=== PATIENT | male | born 1950 | race Caucasian/White ===

== ENCOUNTER → 2017-03-17 | Outpatient (CLI) | payer OTHER | LOC: BHFA 08:30 | PROVIDERS: ATTEND Internal Medicine Cardiovascular Disease | DX: I25.2 Old myocardial infarction (principal); I25.10 Atherosclerotic heart disease of native coronary artery without angina pectoris | CPT/HCPCS: 78452; 93017; A9500; J2785 ==

== ENCOUNTER → 2017-03-30 | Outpatient (CLI) | payer OTHER | LOC: BHFA 08:30 | PROVIDERS: ATTEND Internal Medicine Interventional Cardiology | DX: I25.10 Atherosclerotic heart disease of native coronary artery without angina pectoris (principal) ==

== ENCOUNTER 2017-05-04 07:03 | Day surgery (SDC) | payer OTHER ==
[2017-05-04] MEDS ORDERED: DIAZEPAM 5 MG TAB PO ONE (07:08)
[2017-05-04] MEDS ORDERED: NS 1,000 ML IV ONE (07:08)
[2017-05-04] MEDS ORDERED: diphenhydrAMINE 25 MG CAP PO ONE ×2 (07:08→07:22)
[2017-05-04] MEDS ORDERED: ASPIRIN EC 325 MG TAB PO ONE ×2 (07:08→07:22)
[2017-05-04] MEDS ORDERED: FAMOTIDINE 20 MG TAB PO ONE (07:08)
[2017-05-04] MEDS ORDERED: FAMOTIDINE 20 MG TAB ONE (07:22)
[2017-05-04] MEDS ORDERED: DIAZEPAM 5 MG TAB ONE (07:23)
--- NOTE | 2017-05-04 07:30 | CPEKG ---
Heart Rate: 80 RR Interval: 750 P-R Interval: 156 QRSD Interval: 94 QT Interval: 396 QTC Interval: 457 P [place]: 54 QRS [place]: -23 T Wave [place]: 82 EKG Severity - ABNORMAL ECG - EKG Impression: SINUS RHYTHM EKG Impression: BORDERLINE LEFT AXIS DEVIATION EKG Impression: ANTERIOR INFARCT, POSSIBLY ACUTE Electronically Signed By: Benjamin Mckenzie 04-May-2017 09:10:16
[2017-05-04 07:50] LABS: PLATELET COUNT 223 10^3/uL (150-400)
[2017-05-04 07:59] LABS: INR 0.91 (0.83-1.16); PROTIME(PATIENT) 12.2 SEC (12.0-15.0)
[2017-05-04] MEDS ORDERED: MIDAZOLAM 2 MG/2 ML VIAL ONE (09:00)
[2017-05-04] MEDS ORDERED: fentaNYL 100 MCG/2 ML INJ ONE (09:00)
[2017-05-04] MEDS ORDERED: LIDOCAINE 1% 300 MG/30 ML SDV ONE (09:00)
[2017-05-04] MEDS ORDERED: IOPAMIDOL (ISOVUE-370) 150 ML BTL IV ONE (09:01)
--- NOTE | 2017-05-04 09:08 | PDHPUP ---
History & Physical Update H&P update statement: This history and physical update is based on an assessment of the patient which was completed after admission or registration (within 24 hours), but prior to the surgery/procedure. H&P update: H&P reviewed & patient examined, no change in patient's condition since H&P completed
--- NOTE | 2017-05-04 09:09 | PDPROPOC ---
Sedation Plan of Care Sedation Plan of Care: vital signs stable, mental status noted, patient educated of risks, benefits, alternatives, patient can tolerate sedation ASA Classification: ASA 2 Planned drugs: fentanyl, midazolam Mallampati Score: Class 2 Mallampati Reference Image: Patient passed 3-3-2 rule?: Yes
[2017-05-04] MEDS ORDERED: NITROGLYCERIN 0.4 MG BTL SL PRN (10:11)
[2017-05-04] MEDS ORDERED: ATROPINE SULFATE 1 MG/10 ML SYR IVP PRN (10:11)
[2017-05-04] MEDS ORDERED: HYDROCODONE/APAP 5/325 TAB PO PRN (10:11)
[2017-05-04] MEDS ORDERED: ONDANSETRON 4 MG/2 ML VIAL IVP PRN (10:11)
[2017-05-04] MEDS ORDERED: OXYCODONE/APAP 5/325 TAB PO PRN (10:11)
--- NOTE | 2017-05-04 10:34 | CPIP ---
[f rep st] INVASIVE CARDIAC PROCEDURE DATE OF PROCEDURE: 05/04/2017 PROCEDURES: 1. Coronary angiography. 2. Left ventriculography. INDICATION: 1. Probable anteroseptal [place] in 2015 based on history. 2. Abnormal EKG with anteroseptal [place], old. 3. Abnormal nuclear stress test with anteroseptal [place] and EF of 28%. ACCESS: The patient was prepped and draped in sterile fashion. 1% lidocaine was used to anesthetize the right inguinal region. A 6-[place]izen [place] introducer sheath was placed selectively into the right commo n femoral artery via modified Seldinger technique. CORONARY ANGIOGRAPHY: A 6-[place]izen [place] JL4 was advanced to the left main coronary artery and images obtain ed. The left main coronary artery trifurcated into left anterior descending coronary artery, ramus c oronary artery and circumflex coronary artery. The left main coronary artery appeared normal. The l eft anterior descending coronary artery was 100% occluded after the takeoff of the 1st septal perfora tor. The distal vessel is being filled by [id number] collaterals. The ramus coronary artery is a moderate-sized vessel. The ramus coronary artery appeared normal. The circumflex coronary artery is a large vessel, but was nondominant. Circumflex coronary artery had a proximal 30% stenosis present . The circumflex coronary artery gave rise to 3 OM branches. The 1st OM branch had a proximal 30% s tenosis present. A 6-[place]izen [place] JR4 was advanced to the right coronary artery and images obtained. The right coronary artery is dominant. The right coronary artery had a mid 30% stenosis present. LEFT VENTRICULOGRAPHY: A 6-[place]izen [place] pigtail catheter was advanced in the left ventricle and images obt ained. Left ventricle was normal in size with reduced systolic function. Estimated ejection fractio n was 30% to 35%. The anteroapical segments were akinetic. The left ventricular end-diastolic press ure was 15 mmHg. COMPLICATIONS: None. CONCLUSIONS: 1. Single-vessel coronary artery disease involving the left anterior descending coronary artery. 2. Reduced left ventricular systolic function with an estimated ejection fraction of 30% to 35%. /[id number]/MODL
--- NOTE | 2017-05-04 10:34 | CPIP ---
[f rep st] INVASIVE CARDIAC PROCEDURE DATE OF PROCEDURE: 05/04/2017 PROCEDURES: 1. Coronary angiography. 2. Left ventriculography. INDICATION: 1. Probable anteroseptal [place] in 2015 based on history. 2. Abnormal EKG with anteroseptal [place], old. 3. Abnormal nuclear stress test with anteroseptal [place] and EF of 28%. ACCESS: The patient was prepped and draped in sterile fashion. 1% lidocaine was used to anesthetize the right inguinal region. A 6-[place] introducer sheath was placed selectively into the right commo n femoral artery via modified Seldinger technique. CORONARY ANGIOGRAPHY: A 6-[place] JL4 was advanced to the left main coronary artery and images obtain ed. The left main coronary artery trifurcated into left anterior descending coronary artery, ramus c oronary artery and circumflex coronary artery. The left main coronary artery appeared normal. The l eft anterior descending coronary artery was 100% occluded after the takeoff of the 1st septal perfora tor. The distal vessel is being filled by [id number] collaterals. The ramus coronary artery is a moderate-sized vessel. The ramus coronary artery appeared normal. The circumflex coronary artery is a large vessel, but was nondominant. Circumflex coronary artery had a proximal 30% stenosis present . The circumflex coronary artery gave rise to 3 OM branches. The 1st OM branch had a proximal 30% s tenosis present. A 6-[place] JR4 was advanced to the right coronary artery and images obtained. The right coronary artery is dominant. The right coronary artery had a mid 30% stenosis present. LEFT VENTRICULOGRAPHY: A 6-[place] pigtail catheter was advanced in the left ventricle and images obt ained. Left ventricle was normal in size with reduced systolic function. Estimated ejection fractio n was 30% to 35%. The anteroapical segments were akinetic. The left ventricular end-diastolic press ure was 15 mmHg. COMPLICATIONS: None. CONCLUSIONS: 1. Single-vessel coronary artery disease involving the left anterior descending coronary artery. 2. Reduced left ventricular systolic function with an estimated ejection fraction of 30% to 35%. /[id number]/MODL
--- NOTE | 2017-05-04 10:34 | CPIP ---
[f rep st] INVASIVE CARDIAC PROCEDURE DATE OF PROCEDURE: 05/04/2017 PROCEDURES: 1. Coronary angiography. 2. Left ventriculography. INDICATION: 1. Probable anteroseptal [place] in 2015 based on history. 2. Abnormal EKG with anteroseptal [place], old. 3. Abnormal nuclear stress test with anteroseptal [place] and EF of 28%. ACCESS: The patient was prepped and draped in sterile fashion. 1% lidocaine was used to anesthetize the right inguinal region. A 6-[place] introducer sheath was placed selectively into the right commo n femoral artery via modified Seldinger technique. CORONARY ANGIOGRAPHY: A 6-[place] JL4 was advanced to the left main coronary artery and images obtain ed. The left main coronary artery trifurcated into left anterior descending coronary artery, ramus c oronary artery and circumflex coronary artery. The left main coronary artery appeared normal. The l eft anterior descending coronary artery was 100% occluded after the takeoff of the 1st septal perfora tor. The distal vessel is being filled by [id number] collaterals. The ramus coronary artery is a moderate-sized vessel. The ramus coronary artery appeared normal. The circumflex coronary artery is a large vessel, but was nondominant. Circumflex coronary artery had a proximal 30% stenosis present . The circumflex coronary artery gave rise to 3 OM branches. The 1st OM branch had a proximal 30% s tenosis present. A 6-[place] JR4 was advanced to the right coronary artery and images obtained. The right coronary artery is dominant. The right coronary artery had a mid 30% stenosis present. LEFT VENTRICULOGRAPHY: A 6-[place] pigtail catheter was advanced in the left ventricle and images obt ained. Left ventricle was normal in size with reduced systolic function. Estimated ejection fractio n was 30% to 35%. The anteroapical segments were akinetic. The left ventricular end-diastolic press ure was 15 mmHg. COMPLICATIONS: None. CONCLUSIONS: 1. Single-vessel coronary artery disease involving the left anterior descending coronary artery. 2. Reduced left ventricular systolic function with an estimated ejection fraction of 30% to 35%. /[id number]/MODL
[2017-05-04] MEDS ORDERED: BUDESONIDE/FORMOTEROL 160/4.5 60 PUFFS/MDI IH SCH (21:00)
[2017-05-04] MEDS ORDERED: VENTOLIN 90 MCG IH SCH (21:00)
[2017-05-04] MEDS ORDERED: LOSARTAN POTASSIUM 50 MG TAB PO SCH (21:00)
[2017-05-04] MEDS ORDERED: ROSUVASTATIN CALCIUM 10 MG TAB PO SCH (21:00)
[2017-05-04] MEDS ORDERED: ASPIRIN 81 MG CHEWABLE TAB PO SCH (21:00)
[2017-05-05] MEDS ORDERED: NON-FORMULARY NEW DRUG (Calcium Carbonate/Vitamin D3 [Calcium 600 + Vit D Tablet] 1 EACH) PO SCH (09:00)
== END 2017-05-04 12:20 | disposition home or self-care (01) ==
LOC: FCATH 07:03
PROVIDERS: ATTEND Internal Medicine Cardiovascular Disease
PROC: 4A023N7 Measurement of Cardiac Sampling and Pressure, Left Heart, Percutaneous Approach (ICD-10-PCS; principal; 2017-05-04)
PROC: B2151ZZ Fluoroscopy of Left Heart using Low Osmolar Contrast (ICD-10-PCS; principal; 2017-05-04)
PROC: B2111ZZ Fluoroscopy of Multiple Coronary Arteries using Low Osmolar Contrast (ICD-10-PCS; principal; 2017-05-04)
DX: I25.10 Atherosclerotic heart disease of native coronary artery without angina pectoris (principal); I10 Essential (primary) hypertension; E78.5 Hyperlipidemia, unspecified; I71.4 Abdominal aortic aneurysm, without rupture; R94.39 Abnormal result of other cardiovascular function study
CPT/HCPCS: C1760; J1644; J2250; J3010; Q9967

== ENCOUNTER 2017-05-05 08:54 | Inpatient (IN) | payer OTHER ==
--- NOTE | 2017-05-05 08:58 | EDPHY ---
H & P Time Seen by Provider: 05/05/17 08:57 HPI/ROS: CHIEF COMPLAINT: Slurred speech and facial droop HISTORY OF PRESENT ILLNESS: Patient had cardiac catheterization yesterday. He has it prothrombin clotting disorder and hypertension. He was normal last night at 8:00 p.m. when he went to bed and was seen by his to have normal face and normal speech then. He got up a couple of times in the night to urinate but did not talk and did not look in the mirror. He got up at 5:30 a.m. and felt unsteady on his feet. At 7:50 a.m. his noticed right facial droop and slurred speech and presents to the ED. Patient denies any trouble with thought or trouble swallowing or trouble breathing. He denies headache or weakness or numbness in extremities. REVIEW OF SYSTEMS: Eye: no change in vision ENT: no sore throat Cardiac: no chest pain or syncope Pulmonary: no cough or SOB Abdomen: no vomiting, diarrhea, abdominal pain Musculoskeletal: no back pain Skin: no rash Neuro: HPI Constitutional: no fever : no urinary symptoms A comprehensive 10 point review of systems is otherwise negative aside from elements mentioned in the history of present illness. PAST MEDICAL HISTORY: Hypertension, myocardial infarction, prothrombin clotting disorder. Social history: Here with daughter and General Appearance: Alert and conversant, cooperative. Eyes: No scleral icterus. ENT, Mouth: Normal mucous membranes. Respiratory: Normal respiratory effort, breath sounds equal, lungs are clear to auscultation. Cardiovascular: Regular rate and rhythm. Gastrointestinal: Abdomen is soft and non tender. Neurological: Alert and oriented x3. Patient has slurred speech and right facial droop. Extraocular motion is intact. Patient has good ophthalmic technician apprentice strength in hands, can lift each leg off the bed, and preserved to light touch sensory in all 4 extremities. No pronator drift. Skin: Warm and dry, no rashes. Musculoskeletal: No peripheral edema and no joint swelling. Psychiatric: Not agitated. Emergency Department course/MDM: Patient is not made a stroke alert since he is 13 hours since last definite known normal at 8:00 p.m. last night. 918: discussed with Apolinar, agrees with no stroke alert, not Activase candidate, will consult if admitted to [facility]. CT reported to me by Dr. Moreno as carotid stenosis up to 80% but no interventional intercerebral stenosis or acute occlusion. No indication for interventional radiology. Results and plan discussed with the family and patient, admit to hospital for further stroke evaluation. Smoking Status: Former smoker Constitutional: Initial Vital Signs Temperature (C) 36.5 C 05/05/17 08:56 Heart Rate 93 05/05/17 08:56 Respiratory Rate 16 05/05/17 08:56 Blood Pressure 176/95 H 05/05/17 08:56 O2 Sat (%) 91 L 05/05/17 08:56 O2 Delivery Mode Room Air Allergies/Adverse Reactions: No Allergies [NKDA] Allergy (Verified 04/23/17 17:23) Home Medications: Medication Instructions Recorded Aspirin [Aspirin 81mg (*)] 81 mg PO HS 04/27/17 Budesonide/Formoterol 160/4.5 2 puffs IH BID 04/27/17 [Symbicort 160-4.5 Mcg Inh (*)] Calcium Carbonate/Vitamin D3 1 each PO DAILY 04/27/17 [CALCIUM 600 + VIT D TABLET] Losartan Potassium [Cozaar 50 mg 100 mg PO HS 04/27/17 (*)] Rosuvastatin Calcium [Crestor 10mg 10 mg PO HS 04/27/17 (RX)] Albuterol [Proventil Inhaler HFA 1 - 2 puffs IH DAILY PRN 05/04/17 (*)] Medical Decision Making - Diagnostics EKG Interpretation: 12-lead EKG interpreted by me; official reading is in trace master. My interpretation is sinus rhythm rate 94 with old anterior myocardial infarction. Imaging Results: Imaging Impressions Head CT 05/05/17 09:03 Impression: Nothing acute intracranially. Findings and recommendations discussed with JAZLYN ARZATE at 1010 hour, 2016. Final report concurs with initial preliminary interpretation. Chest X-Ray 05/05/17 09:08 Impression: Mild peribronchial thickening suggesting airways disease/bronchitis. Differential Diagnosis: The differential considered including but not limited to ischemic stroke, hemorrhagic stroke, seizure, intracranial mass or bleed. Consult/Admit Bed Type: [facility] - Data Points Laboratory Results: Laboratory Results 05/05/17 09:00 05/05/17 09:00 05/05/17 05/05/17 05/05/17 09:00 09:00 09:00 WBC 5.85 10^3/uL 10^3/uL (3.80-9.50) RBC 4.69 10^6/uL 10^6/uL (4.40-6.38) Hgb 14.8 g/dL g/dL (13.7-17.5) POC Hgb Hct 44.9 % % (40.0-51.0) POC Hct MCV 95.7 fL fL (81.5-99.8) MCH 31.6 pg pg (27.9-34.1) MCHC 33.0 g/dL g/dL (32.4-36.7) RDW 12.5 % % (11.5-15.2) Plt Count 240 10^3/uL 10^3/uL (150-400) MPV 9.9 fL fL (8.7-11.7) Neut % (Auto) 69.6 % % (39.3-74.2) Lymph % (Auto) 12.8 % L % (15.0-45.0) [place] % (Auto) 15.2 % H % (4.5-13.0) Eos % (Auto) 1.2 % % (0.6-7.6) Baso % (Auto) 0.9 % % (0.3-1.7) Nucleat RBC Rel Count 0.0 % % (0.0-0.2) Absolute Neuts (auto) 4.07 10^3/uL 10^3/uL (1.70-6.50) Absolute Lymphs (auto) 0.75 10^3/uL L 10^3/uL (1.00-3.00) Absolute Monos (auto) 0.89 10^3/uL H 10^3/uL (0.30-0.80) Absolute Eos (auto) 0.07 10^3/uL 10^3/uL (0.03-0.40) Absolute Basos (auto) 0.05 10^3/uL 10^3/uL (0.02-0.10) Absolute Nucleated RBC 0.00 10^3/uL 10^3/uL (0-0.01) Immature Gran % 0.3 % % (0.0-1.1) Immature Gran # 0.02 10^3/uL 10^3/uL (0.00-0.10) PT 13.0 SEC SEC (12.0-15.0) INR 0.99 (0.83-1.16) POC Sodium Sodium 141 mEq/L mEq/L (134-144) POC Potassium Potassium 4.1 mEq/L mEq/L (3.5-5.2) POC Chloride Chloride 102 mEq/L mEq/L (97-110) Carbon Dioxide 25 mEq/l mEq/l (22-31) Anion Gap 14 mEq/L mEq/L (8-16) POC BUN BUN 11 mg/dL mg/dL (7-23) Creatinine 1.1 mg/dL mg/dL (0.7-1.3) POC Creatinine Estimated GFR > 60 Glucose 75 mg/dL mg/dL (70-100) POC Glucose Calcium 9.4 mg/dL mg/dL (8.5-10.4) Troponin I 0.017 ng/mL ng/mL (0.000-0.034) 05/05/17 08:59 WBC RBC Hgb POC Hgb 16.0 gm/dL gm/dL (13.7-17.5) Hct POC Hct 47 % % (40-51) MCV MCH MCHC RDW Plt Count MPV Neut % (Auto) Lymph % (Auto) [place] % (Auto) Eos % (Auto) Baso % (Auto) Nucleat RBC Rel Count Absolute Neuts (auto) Absolute Lymphs (auto) Absolute Monos (auto) Absolute Eos (auto) Absolute Basos (auto) Absolute Nucleated RBC Immature Gran % Immature Gran # PT INR POC Sodium 140 mEq/L mEq/L (134-144) Sodium POC Potassium 4.0 mEq/L mEq/L (3.3-5.0) Potassium POC Chloride 103 mEq/L mEq/L (97-110) Chloride Carbon Dioxide Anion Gap POC BUN 11 mg/dL mg/dL (7-23) BUN Creatinine POC Creatinine 1.1 mg/dL mg/dL (0.7-1.3) Estimated GFR Glucose POC Glucose 76 mg/dL mg/dL (70-100) Calcium Troponin I Medications Given: Atorvastatin Calcium (Lipitor) 80 mg PO DAILY [facility] Stop: 11/01/17 10:59 Last Admin: 05/05/17 11:17 Dose: Not Given Discontinued Medications Aspirin (Aspirin) 325 mg PO ONCE ONE Stop: 05/05/17 10:54 Last Admin: 05/05/17 11:17 Dose: Not Given Point of Care Test Results: 05/05/17 08:59 POC Sodium 140 POC Potassium 4.0 POC Chloride 103 POC BUN 11 POC Creatinine 1.1 POC Glucose 76 Departure - Departure Disposition: Home, Routine, Self-Care Clinical Impression: Acute ischemic stroke Condition: Good
[2017-05-05] MEDS ORDERED: IOPAMIDOL (ISOVUE 370) 100 ML BTL IV ONE (09:12)
--- NOTE | 2017-05-05 09:19 | CPEKG ---
Heart Rate: 94 RR Interval: 638 P-R Interval: 172 QRSD Interval: 86 QT Interval: 356 QTC Interval: 446 P [place]: 66 QRS [place]: -12 T Wave [place]: 87 EKG Severity - ABNORMAL ECG - EKG Impression: SINUS RHYTHM EKG Impression: PROBABLE LEFT ATRIAL ABNORMALITY EKG Impression: ANTERIOR INFARCT, AGE INDETERMINATE Electronically Signed By: Jeff Nazario 05-May-2017 09:22:53
--- NOTE | 2017-05-05 09:19 | CPEKG ---
Heart Rate: 94 RR Interval: 638 P-R Interval: 172 QRSD Interval: 86 QT Interval: 356 QTC Interval: 446 P [place]: 66 QRS [place]: -12 T Wave [place]: 87 EKG Severity - ABNORMAL ECG - EKG Impression: SINUS RHYTHM EKG Impression: PROBABLE LEFT ATRIAL ABNORMALITY EKG Impression: ANTERIOR INFARCT, AGE INDETERMINATE Electronically Signed By: Jeff Nazario 05-May-2017 09:22:53
[2017-05-05 09:21] LABS: PLATELET COUNT 240 10^3/uL (150-400)
[2017-05-05 09:29] LABS: INR 0.99 (0.83-1.16)
[2017-05-05] MEDS ORDERED: ONDANSETRON DISINTEGRATING 4 MG TAB PO PRN (10:49)
[2017-05-05] MEDS ORDERED: ACETAMINOPHEN 325 MG TAB PO PRN (10:49)
[2017-05-05] MEDS ORDERED: LABETALOL HCL 5 MG/ML 20 ML MDV IVP PRN (10:49)
[2017-05-05] MEDS ORDERED: ONDANSETRON 4 MG/2 ML VIAL IVP PRN (10:49)
[2017-05-05] MEDS ORDERED: ASPIRIN 325 MG TAB PO ONE (10:53)
--- NOTE | 2017-05-05 11:01 | PDGENHP ---
History and Physical - Chief Complaint dysarthria - History of Present Illness 66 yo male with h/o hypertension, COPD, CAD with prior [place] and prothrombin clotting disorder presented to ED with am with facial droop and slurred speech. He was last seen normal at 8:30 PM last night by his . When she interacted with him this morning just before 8 am, she noticed facial droop and slurred speech and brought him to the ED right away. He denies CP, SOB or palpitations. He noted feeling dysequilibrium when he got around 5 am to use the bathroom. When he tried to speak to his this am, he speech was markedly slurred. He feels a little weakness on the right side, but more dysequilibrium. He underwent angiogram yesterday after a nuclear medicine stress test showed evidence of an old anteroseptal infarct. This revealed single vessel coronary disease in the LAD and no intervention was performed and medical management was recommended. He has been taking daily ASA since 01/2017 and also takes low dose statin. He is not on a beta fausto due to concern for his COPD. In the ED, CT head was negative and there was no eividence of large vessel occlusion on CTA. He had persistent stroke symptoms though was not a candidate for TpA given last seen normal >12 hrs prior to arrival. He is admitted to the hospital for further management. History Information - Allergies/Home Medication List Allergies/Adverse Reactions: No Allergies [NKDA] Allergy (Verified 04/23/17 17:23) Home Medications: Aspirin [Aspirin 81mg (*)] 81 mg PO HS 04/27/17 [Last Taken 05/04/17] Budesonide/Formoterol 160/4.5 [Symbicort 160-4.5 Mcg Inh (*)] 2 puffs IH BID [Last Taken 05/05/17] Calcium Carbonate/Vitamin D3 [CALCIUM 600 + VIT D TABLET] 1 each PO DAILY [Last Taken 05/05/17] Losartan Potassium [Cozaar 50 mg (*)] 100 mg PO HS 04/27/17 [Last Taken 05/04/17 ] Rosuvastatin Calcium [Crestor 10mg (RX)] 10 mg PO HS 04/27/17 [Last Taken ] Albuterol [Proventil Inhaler HFA (*)] 1 - 2 puffs IH DAILY PRN 05/04/17 [Last Taken Unknown] I have personally reviewed and updated: family history, medical history, social history, surgical history - Past Medical History coronary artery disease, COPD, hypertension Additional medical history: Prothrombin clotting disorder. H/O [place] 11/2015. Angiogram 05/04/2017 - single vessel CAD 100% occlusion of LAD. COPD. 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 Alcohol use disorder - h/o 16 beers / day, now drinking 2 beers a day - Surgical History Reports: hernia repair Additional surgical history: angiogram - Family History Additional family history: father and sister with prothrombin clotting disorder. sister had PE. dad suddenly, believed to be due to CVA - Social History Smoking Status: Former smoker Alcohol Use: Other (daily, 2 beers/day) Drug Use: None Review of Systems Review of Systems: ROS: 10pt was reviewed & negative except for what was stated in HPI & below Physical Exam Physical Exam: Temp Pulse Resp BP Pulse Ox 36.5 C 81 18 158/82 H 94 05/05/17 08:56 05/05/17 09:53 05/05/17 09:53 05/05/17 09:53 05/05/17 09:53 Constitutional: no apparent distress Eyes: PERRL Ears, Nose, Mouth, Throat: moist mucous membranes Cardiovascular: regular rate and rhythym, no murmur, rub, or gallop Respiratory: no respiratory distress, clear to auscultation Gastrointestinal: normoactive bowel sounds, soft, non-tender abdomen Skin: warm Musculoskeletal: other (4/5 muscle strength RUE and RLE, 5/5 muscle strength LUE and LLE) Neurologic: AAOx3, other (+dysarthria, +right facial droop, mild pronator drift on right) Lab Data & Imaging Review 05/05/17 09:00 05/05/17 09:00 WBC 5.85 10^3/uL (3.80-9.50) 05/05/17 09:00 RBC 4.69 10^6/uL (4.40-6.38) 05/05/17 09:00 Hgb 14.8 g/dL (13.7-17.5) 05/05/17 09:00 POC Hgb 16.0 gm/dL (13.7-17.5) 05/05/17 08:59 Hct 44.9 % (40.0-51.0) 05/05/17 09:00 POC Hct 47 % (40-51) 05/05/17 08:59 MCV 95.7 fL (81.5-99.8) 05/05/17 09:00 MCH 31.6 pg (27.9-34.1) 05/05/17 09:00 MCHC 33.0 g/dL (32.4-36.7) 05/05/17 09:00 RDW 12.5 % (11.5-15.2) 05/05/17 09:00 Plt Count 240 10^3/uL (150-400) 05/05/17 09:00 MPV 9.9 fL (8.7-11.7) 05/05/17 09:00 Neut % (Auto) 69.6 % (39.3-74.2) 05/05/17 09:00 Lymph % (Auto) 12.8 % (15.0-45.0) L 05/05/17 09:00 [place] % (Auto) 15.2 % (4.5-13.0) H 05/05/17 09:00 Eos % (Auto) 1.2 % (0.6-7.6) 05/05/17 09:00 Baso % (Auto) 0.9 % (0.3-1.7) 05/05/17 09:00 Nucleat RBC Rel Count 0.0 % (0.0-0.2) 05/05/17 09:00 Absolute Neuts (auto) 4.07 10^3/uL (1.70-6.50) 05/05/17 09:00 Absolute Lymphs (auto) 0.75 10^3/uL (1.00-3.00) L 05/05/17 09:00 Absolute Monos (auto) 0.89 10^3/uL (0.30-0.80) H 05/05/17 09:00 Absolute Eos (auto) 0.07 10^3/uL (0.03-0.40) 05/05/17 09:00 Absolute Basos (auto) 0.05 10^3/uL (0.02-0.10) 05/05/17 09:00 Absolute Nucleated RBC 0.00 10^3/uL (0-0.01) 05/05/17 09:00 Immature Gran % 0.3 % (0.0-1.1) 05/05/17 09:00 Immature Gran # 0.02 10^3/uL (0.00-0.10) 05/05/17 09:00 PT 13.0 SEC (12.0-15.0) 05/05/17 09:00 INR 0.99 (0.83-1.16) 05/05/17 09:00 POC Sodium 140 mEq/L (134-144) 05/05/17 08:59 Sodium 141 mEq/L (134-144) 05/05/17 09:00 POC Potassium 4.0 mEq/L (3.3-5.0) 05/05/17 08:59 Potassium 4.1 mEq/L (3.5-5.2) 05/05/17 09:00 POC Chloride 103 mEq/L (97-110) 05/05/17 08:59 Chloride 102 mEq/L (97-110) 05/05/17 09:00 Carbon Dioxide 25 mEq/l (22-31) 05/05/17 09:00 Anion Gap 14 mEq/L (8-16) 05/05/17 09:00 POC BUN 11 mg/dL (7-23) 05/05/17 08:59 BUN 11 mg/dL (7-23) 05/05/17 09:00 Creatinine 1.1 mg/dL (0.7-1.3) 05/05/17 09:00 POC Creatinine 1.1 mg/dL (0.7-1.3) 05/05/17 08:59 Estimated GFR > 60 05/05/17 09:00 Glucose 75 mg/dL (70-100) 05/05/17 09:00 POC Glucose 76 mg/dL (70-100) 05/05/17 08:59 Calcium 9.4 mg/dL (8.5-10.4) 05/05/17 09:00 Troponin I 0.017 ng/mL (0.000-0.034) 05/05/17 09:00 Assessment & Plan Assessment: Ischemic CVA - Last seen normal >12 hrs prior to presentation, not a candidate for TpA. Pt with persistent symptoms including dysarthria, left facial droop and mild left sided weakness. CT head neg. CTA head and neck neg for lg vessel occlusion, but preliminary report suggestive of left carotid narrowing. Brain MRI shows acute lacunar infarct left caudate body. Potential etiologies of CVA: carotid stenosis, LV thrombus (note reduced EF on angiogram), clotting disorder, (father of CVA and sister had PE from same clotting disorder), A fib -admit for stroke w/u, neurochecks -permissive hypertension for now, treat for SBP >220 or DBP >120 -monitor on telemetry, consider prolonged outpt cardiac event monitor if no other source found as 20% of CVA pts turn up with A fib -echo now to r/o LV thrombus in setting of reduced EF -full dose ASA now after swallow screen, change to plavix starting tomorrow given CVA while on baby ASA -discussed with hematology, his clotting disorder is unlikely to cause arterial strokes and is not an indication for AC, heme will consult tomorrow -may need vascular surgery consult if carotid narrowing >70%, report pending -high dose statin, check lipid status -neurology to consult Ischemic cardiomyopathy - Nuclear stress test showed e/o prior anteroseptal DE and EF 28%. Angiogram yesterday showed single vessel disease in LAD with EF 30- 35%. -echo as above -ASA, statin, consider addition of BB at some point, defer now as allowing permissive htn during acute CVA phase -cardiology consulted, ?indication for AICD Hypertension - as above, permissive hypertension -resume home meds in 24 hrs Prothrombin clotting disorder - Heme to consult tomorrow, not an indication for AC at this time. COPD - stable, cont outpt meds DVT PPLX - Lovenox Full code Dispo - admit to inpt, anticipate >48 hrs hospitalization for stroke workup, acute PT/OT
[2017-05-05] MEDS: ATORVASTATIN CALCIUM 40 MG TAB PO SCH (11:17)
--- NOTE | 2017-05-05 15:01 | PDMN ---
Medical Necessity Medical necessity: est los>2mn for w/u for ischemic CVA, r/t LV thrombus vs clotting disorder vs afib, and htn; comorbid cardiomyopathy, prothrombin clotting disorder, hx NC; requires heme and neuro consult, telemetry, possible vascular surgery consult, neuro checks, acute PT/OT/ST; per order and H&P
--- NOTE | 2017-05-05 15:01 | PDMN ---
Medical Necessity Medical necessity: est los>2mn for w/u for ischemic CVA, r/t LV thrombus vs clotting disorder vs afib, and htn; comorbid cardiomyopathy, prothrombin clotting disorder, hx [place]; requires heme and neuro consult, telemetry, possible vascular surgery consult, neuro checks, acute PT/OT/ST; per order and H&P
--- NOTE | 2017-05-05 15:01 | PDMN ---
Medical Necessity Medical necessity: est los>2mn for w/u for ischemic CVA, r/t LV thrombus vs clotting disorder vs afib, and htn; comorbid cardiomyopathy, prothrombin clotting disorder, hx NM; requires heme and neuro consult, telemetry, possible vascular surgery consult, neuro checks, acute PT/OT/ST; per order and H&P
[2017-05-05] MEDS ORDERED: ALBUTEROL 60 PUFFS/8 GM MDI IH PRN (15:58)
--- NOTE | 2017-05-05 16:37 | ECHO ---
[email or web address] [address] [address] Main: [phone] Fax: Transthoracic Echocardiogram Name: RAQUEL OLEA MR#: [id number] Study Date: 05/05/2017 Study Time: 02:35 PM Date of : 1950 Age: 66 year(s) Height: 190.5 cm (75 in.) Weight: 83.92 kg (185 lb.) BSA: 2.12 m2 Gender: Male Examination: Echo Indication: Ischemic stroke Image Quality: Contrast: Requested by: Kasia Pak BP: 174 mmHg/91 mmHg Heart Rate: Rhythm: Indication: Ischemic stroke Procedure Staff Music Manager: Sharon Bashir Reading Physician: Say Jaquez Requesting Provider: Conclusions: Mildly to moderately dilated left ventricle. The ejection fraction is estimated to be 30-35 %. Entire LV apical region is akinetic.. The left atrium is moderately dilated. Bubble study performed - inconclusive.. There is a calcified posterior mitral leaflet.. Mild to moderate mitral regurgitation. Mild aortic cusp calcification is noted. Mild aortic valve regurgitation is present. The pulmonary artery pressure is mildly increased. Measurements: Chambers Valvular Assessment AV/MV Valvular Assessment TV/PV Normal Normal Normal Name Value Range Name Value Range Name Value Range IVSd (2D): 0.8 cm (0.6 cm-1.1 AV Vmax: 1.41 m/s (1 m/s-1.7 TR Vmax: 3.08 mm/s ( - ) cm) m/s) TR PGmax: 38 mmHg ( - ) LVDd (2D): 6.5 cm (4.2 cm-5.9 AV maxP mmHg ( - ) syst. PAP: 43 mmHg ( - ) cm) AV meanP mmHg ( - ) LVDs (2D): 4.3 cm (2.1 cm-4 AR (PHT): 430 ms ( - ) cm) MV E Vmax: 0.74 m/s ( - ) LVPWd (2D): 0.8 cm (0.6 cm-1 MV A Vmax: 1.04 m/s ( - ) cm) MV E/A: 0.71 ( - ) EF Range: 30-35 % Continued Measurements: Chambers Valvular Assessment AV/MV Valvular Assessment TV/PV Name Value Name Value Name Value Patient: RAQUEL OLEA Study Date: 05/05/2017 Page 1 of 2 02:35 PM LADs: 4.8 cm MV E/E' Septal: 13.10 CVP (est.): 5 mmHg LADs Lon.4 cm MV E/E' Lateral: 12.60 LA Area: 24.0 cm2 AR Vmax: 4.76 cm/s Findings: Left Ventricle: Mildly to moderately dilated left ventricle. The ejection fraction is estimated to be 30-35 %. Entire LV apical region is akinetic.. Right Ventricle: Normal size right ventricle. Left Atrium: The left atrium is moderately dilated. Bubble study performed - inconclusive.. Right Atrium: The right atrium is borderline dilated. Mitral Valve: Mild to moderate mitral regurgitation. There is a calcified posterior mitral leaflet.. Aortic Valve: Mild aortic cusp calcification is noted. Mild aortic valve regurgitation is present. Tricuspid Valve: The tricuspid valve appears normal. The pulmonary artery pressure is mildly increased. Pulmonic Valve: The pulmonic valve is normal in appearance. Mild pulmonic valve regurgitation is noted. Pericardium: No pericardial effusion. (No Signature Object) Patient: RAQUEL OLEA Study Date: 05/05/2017 Page 2 of 2 02:35 PM [id number]
--- NOTE | 2017-05-05 16:37 | ECHO ---
[email or web address] [address] [address] Main: [phone] Fax: Transthoracic Echocardiogram Name: RAQUEL OLEA MR#: [id number] Study Date: 05/05/2017 Study Time: 02:35 PM Date of : 1950 Age: 66 year(s) Height: 190.5 cm (75 in.) Weight: 83.92 kg (185 lb.) BSA: 2.12 m2 Gender: Male Examination: Echo Indication: Ischemic stroke Image Quality: Contrast: Requested by: Kasia Pak BP: 174 mmHg/91 mmHg Heart Rate: Rhythm: Indication: Ischemic stroke Procedure Staff Tar Pot Man: Sharon Bashir Reading Physician: Say Jaquez Requesting Provider: Conclusions: Mildly to moderately dilated left ventricle. The ejection fraction is estimated to be 30-35 %. Entire LV apical region is akinetic.. The left atrium is moderately dilated. Bubble study performed - inconclusive.. There is a calcified posterior mitral leaflet.. Mild to moderate mitral regurgitation. Mild aortic cusp calcification is noted. Mild aortic valve regurgitation is present. The pulmonary artery pressure is mildly increased. Measurements: Chambers Valvular Assessment AV/MV Valvular Assessment TV/PV Normal Normal Normal Name Value Range Name Value Range Name Value Range IVSd (2D): 0.8 cm (0.6 cm-1.1 AV Vmax: 1.41 m/s (1 m/s-1.7 TR Vmax: 3.08 mm/s ( - ) cm) m/s) TR PGmax: 38 mmHg ( - ) LVDd (2D): 6.5 cm (4.2 cm-5.9 AV maxP mmHg ( - ) syst. PAP: 43 mmHg ( - ) cm) AV meanP mmHg ( - ) LVDs (2D): 4.3 cm (2.1 cm-4 AR (PHT): 430 ms ( - ) cm) MV E Vmax: 0.74 m/s ( - ) LVPWd (2D): 0.8 cm (0.6 cm-1 MV A Vmax: 1.04 m/s ( - ) cm) MV E/A: 0.71 ( - ) EF Range: 30-35 % Continued Measurements: Chambers Valvular Assessment AV/MV Valvular Assessment TV/PV Name Value Name Value Name Value Patient: RAQUEL OLEA Study Date: 05/05/2017 Page 1 of 2 02:35 PM LADs: 4.8 cm MV E/E' Septal: 13.10 CVP (est.): 5 mmHg LADs Lon.4 cm MV E/E' Lateral: 12.60 LA Area: 24.0 cm2 AR Vmax: 4.76 cm/s Findings: Left Ventricle: Mildly to moderately dilated left ventricle. The ejection fraction is estimated to be 30-35 %. Entire LV apical region is akinetic.. Right Ventricle: Normal size right ventricle. Left Atrium: The left atrium is moderately dilated. Bubble study performed - inconclusive.. Right Atrium: The right atrium is borderline dilated. Mitral Valve: Mild to moderate mitral regurgitation. There is a calcified posterior mitral leaflet.. Aortic Valve: Mild aortic cusp calcification is noted. Mild aortic valve regurgitation is present. Tricuspid Valve: The tricuspid valve appears normal. The pulmonary artery pressure is mildly increased. Pulmonic Valve: The pulmonic valve is normal in appearance. Mild pulmonic valve regurgitation is noted. Pericardium: No pericardial effusion. (No Signature Object) Patient: RAQUEL OLEA Study Date: 05/05/2017 Page 2 of 2 02:35 PM [id number]
--- NOTE | 2017-05-05 16:37 | ECHO ---
[email or web address] [address] [address] Main: [phone] Fax: Transthoracic Echocardiogram Name: RAQUEL OLEA MR#: [id number] Study Date: 05/05/2017 Study Time: 02:35 PM Date of : 1950 Age: 66 year(s) Height: 190.5 cm (75 in.) Weight: 83.92 kg (185 lb.) BSA: 2.12 m2 Gender: Male Examination: Echo Indication: Ischemic stroke Image Quality: Contrast: Requested by: Kasia Pak BP: 174 mmHg/91 mmHg Heart Rate: Rhythm: Indication: Ischemic stroke Procedure Staff Stewarding Supervisor: Shaorn Bashir Reading Physician: Say Jaquez Requesting Provider: Conclusions: Mildly to moderately dilated left ventricle. The ejection fraction is estimated to be 30-35 %. Entire LV apical region is akinetic.. The left atrium is moderately dilated. Bubble study performed - inconclusive.. There is a calcified posterior mitral leaflet.. Mild to moderate mitral regurgitation. Mild aortic cusp calcification is noted. Mild aortic valve regurgitation is present. The pulmonary artery pressure is mildly increased. Measurements: Chambers Valvular Assessment AV/MV Valvular Assessment TV/PV Normal Normal Normal Name Value Range Name Value Range Name Value Range IVSd (2D): 0.8 cm (0.6 cm-1.1 AV Vmax: 1.41 m/s (1 m/s-1.7 TR Vmax: 3.08 mm/s ( - ) cm) m/s) TR PGmax: 38 mmHg ( - ) LVDd (2D): 6.5 cm (4.2 cm-5.9 AV maxP mmHg ( - ) syst. PAP: 43 mmHg ( - ) cm) AV meanP mmHg ( - ) LVDs (2D): 4.3 cm (2.1 cm-4 AR (PHT): 430 ms ( - ) cm) MV E Vmax: 0.74 m/s ( - ) LVPWd (2D): 0.8 cm (0.6 cm-1 MV A Vmax: 1.04 m/s ( - ) cm) MV E/A: 0.71 ( - ) EF Range: 30-35 % Continued Measurements: Chambers Valvular Assessment AV/MV Valvular Assessment TV/PV Name Value Name Value Name Value Patient: RAQUEL OLEA Study Date: 05/05/2017 Page 1 of 2 02:35 PM LADs: 4.8 cm MV E/E' Septal: 13.10 CVP (est.): 5 mmHg LADs Lon.4 cm MV E/E' Lateral: 12.60 LA Area: 24.0 cm2 AR Vmax: 4.76 cm/s Findings: Left Ventricle: Mildly to moderately dilated left ventricle. The ejection fraction is estimated to be 30-35 %. Entire LV apical region is akinetic.. Right Ventricle: Normal size right ventricle. Left Atrium: The left atrium is moderately dilated. Bubble study performed - inconclusive.. Right Atrium: The right atrium is borderline dilated. Mitral Valve: Mild to moderate mitral regurgitation. There is a calcified posterior mitral leaflet.. Aortic Valve: Mild aortic cusp calcification is noted. Mild aortic valve regurgitation is present. Tricuspid Valve: The tricuspid valve appears normal. The pulmonary artery pressure is mildly increased. Pulmonic Valve: The pulmonic valve is normal in appearance. Mild pulmonic valve regurgitation is noted. Pericardium: No pericardial effusion. (No Signature Object) Patient: RAQUEL OLEA Study Date: 05/05/2017 Page 2 of 2 02:35 PM [id number]
--- NOTE | 2017-05-05 18:52 | NEUROPROG ---
Assessment: [id number] CC: Dr. Pak consulted neurology for stroke. Results placed in the EMR for her review. HPI: Patient had a cardiac cath on 05/04/17 w/o any complications. He was noted to be normal at 8 pm that night. At 8 am the next morning he was noted to have right facial weakness and slurred speech. He was brought to [facility] ER where brain MRI showed a left internal capsule stroke. CTA head/neck showed bilateral carotid stenosis > 50% but no occluded intracranial vessels or acute thrombosis. Pt last known normal > 6 hours so not a TPA candidate. TTE showed reduced EF 30-35% with akinetic LV apical movement. Pts aspirin was changed to plavix. I initially saw the patient on 05/05/17 and noted he had right lower facial weakness and dysarthric speech. PMHx: prothrombin clotting d/o, HTN, h/o MT, left internal capsule lacunar stroke 05/05/17 Home Meds: ASA 81 mg qd, budesonide/formoterol, Ca/Vit D, losartan, rosuvastatin , ventolin SHx: former tobacco user FHx: daughter alive ROS: Pt denied acute fever, total vision loss, active severe chest pain, respiratory failure, total body severe rash, total bowel/bladder incontinence, psychosis, active seizures, or active bleeding O: VS reviewed General: Alert Eyes: Fundoscopic exam not able to visualize optic disks CV: Heart RRR, no murmur, no carotid bruit Lungs: Clear to auscultation bilaterally, no rhonchi or rales Neuro: - Mental: . Oriented x person/place/date . concentration appears normal . speech fluency/comprehension normal . memory appears normal . fund of knowledge appear intact - Cranial Nerves: . II: PERRL, VFFTC . III/IV/: EOMI, no nystagmus, normal smooth pursuits, no Ptosis . V: facial sensation intact to LT . VII: right lower facial weakness moderate . VIII: hearing intact to conversation . IX/X: mild dysarthric speech . XI: SCM 5/5 B/L strength . XII: tongue protrudes midline w/nl strength - Motor: . Tone: normal tone in all 4 extremity . Strength: no pronator drift, strength 5/5 throughout (B/L delt, bic, tri, hand guard museum, hf/he, df/pf) - Reflexes: B/L bic/BR/patella 2/4 - Sensory: all 4 extremity intact to light touch - Coord: [id number]-on-pauf wnl, NATHANAEL wnl, [id number] wnl - Gait: deferred - NIH SS 3 (right moderate facial weakness, mild dysarthric speech) Labs: 05/05/17- CBC wnl, CMP wnl Rads: 05/05/17- Brain MRI w/o con: left internal capsule stroke (I personally visualized the images on 05/05/17) 05/05/17- CTA head/neck: bilateral carotid stenosis 54-56%, no occlusions seen 05/05/17- TTE: 30-35% EF with akinetic apical LV, bubble study inconclusive Assessment: 1. Symptomatic Left Internal Carotid Artery Stenosis (>50%) causing left internal capsule stroke on 05/05/17: Will also assess heart with additional TTE w /contrast to exclude cardiac thrombus. At this time it is felt the carotid stenosis is the most likely cause of his stroke. 2. Asymptomatic Right Internal Carotid Stenosis 3. Prior cardiac infarction with EF of 30-35% 4. Venous Clotting Disorder Plan: - 24 hour telemetry - Will have Tru Gavin (surgeon) evaluate suspected symptomatic left internal carotid artery stenosis - TTE with contrast to fully exclude cardiac thrombus given reduced EF (Case Discussed with Dr. Benjamin Brooks, cardiology) - hematology discussed with hospitalist and did not recommend anticoagulation at this time - Change aspirin to plavix 75 mg qd (stroke occurred on aspirin) - Labs: Lipids, H1AC - Speech therapy/PT/OT - Blood pressure < 220/120 x 72 hours then < 140/90 - DVT prophy per hospitalist - F/U in neurology clinic 1-4 weeks after discharge Neurology will follow closely Objective: Vital Signs Temp Pulse Resp BP Pulse Ox 37 C 74 18 150/79 H 93 05/05/17 16:07 05/05/17 16:07 05/05/17 16:07 05/05/17 16:07 05/05/17 16:07 PT 13.0 SEC (12.0-15.0) 05/05/17 09:00 INR 0.99 (0.83-1.16) 05/05/17 09:00 Allergies/Adverse Reactions: No Allergies [NKDA] Allergy (Verified 04/23/17 17:23)
--- NOTE | 2017-05-05 18:52 | NEUROPROG ---
Assessment: [id number] CC: Dr. Pak consulted neurology for stroke. Results placed in the EMR for her review. HPI: Patient had a cardiac cath on 05/04/17 w/o any complications. He was noted to be normal at 8 pm that night. At 8 am the next morning he was noted to have right facial weakness and slurred speech. He was brought to [facility] ER where brain MRI showed a left internal capsule stroke. CTA head/neck showed bilateral carotid stenosis > 50% but no occluded intracranial vessels or acute thrombosis. Pt last known normal > 6 hours so not a TPA candidate. TTE showed reduced EF 30-35% with akinetic LV apical movement. Pts aspirin was changed to plavix. I initially saw the patient on 05/05/17 and noted he had right lower facial weakness and dysarthric speech. PMHx: prothrombin clotting d/o, HTN, h/o [place], left internal capsule lacunar stroke 05/05/17 Home Meds: ASA 81 mg qd, budesonide/formoterol, Ca/Vit D, losartan, rosuvastatin , ventolin SHx: former tobacco user FHx: daughter alive ROS: Pt denied acute fever, total vision loss, active severe chest pain, respiratory failure, total body severe rash, total bowel/bladder incontinence, psychosis, active seizures, or active bleeding O: VS reviewed General: Alert Eyes: Fundoscopic exam not able to visualize optic disks CV: Heart RRR, no murmur, no carotid bruit Lungs: Clear to auscultation bilaterally, no rhonchi or rales Neuro: - Mental: . Oriented x person/place/date . concentration appears normal . speech fluency/comprehension normal . memory appears normal . fund of knowledge appear intact - Cranial Nerves: . II: PERRL, VFFTC . III/IV/: EOMI, no nystagmus, normal smooth pursuits, no Ptosis . V: facial sensation intact to LT . VII: right lower facial weakness moderate . VIII: hearing intact to conversation . IX/X: mild dysarthric speech . XI: SCM 5/5 B/L strength . XII: tongue protrudes midline w/nl strength - Motor: . Tone: normal tone in all 4 extremity . Strength: no pronator drift, strength 5/5 throughout (B/L delt, bic, tri, hand interior design coordinator, hf/he, df/pf) - Reflexes: B/L bic/BR/patella 2/4 - Sensory: all 4 extremity intact to light touch - Coord: [id number]-kc-uerr wnl, NATHANAEL wnl, [id number]-br-jqit wnl - Gait: deferred - NIH SS 3 (right moderate facial weakness, mild dysarthric speech) Labs: 05/05/17- CBC wnl, CMP wnl Rads: 05/05/17- Brain MRI w/o con: left internal capsule stroke (I personally visualized the images on 05/05/17) 05/05/17- CTA head/neck: bilateral carotid stenosis 54-56%, no occlusions seen 05/05/17- TTE: 30-35% EF with akinetic apical LV, bubble study inconclusive Assessment: 1. Symptomatic Left Internal Carotid Artery Stenosis (>50%) causing left internal capsule stroke on 05/05/17: Will also assess heart with additional TTE w /contrast to exclude cardiac thrombus. At this time it is felt the carotid stenosis is the most likely cause of his stroke. 2. Asymptomatic Right Internal Carotid Stenosis 3. Prior cardiac infarction with EF of 30-35% 4. Venous Clotting Disorder Plan: - 24 hour telemetry - Will have Tru Gavin (surgeon) evaluate suspected symptomatic left internal carotid artery stenosis - TTE with contrast to fully exclude cardiac thrombus given reduced EF (Case Discussed with Dr. Benjamin Brooks, cardiology) - hematology discussed with hospitalist and did not recommend anticoagulation at this time - Change aspirin to plavix 75 mg qd (stroke occurred on aspirin) - Labs: Lipids, H1AC - Speech therapy/PT/OT - Blood pressure < 220/120 x 72 hours then < 140/90 - DVT prophy per hospitalist - F/U in neurology clinic 1-4 weeks after discharge Neurology will follow closely Objective: Vital Signs Temp Pulse Resp BP Pulse Ox 37 C 74 18 150/79 H 93 05/05/17 16:07 05/05/17 16:07 05/05/17 16:07 05/05/17 16:07 05/05/17 16:07 PT 13.0 SEC (12.0-15.0) 05/05/17 09:00 INR 0.99 (0.83-1.16) 05/05/17 09:00 Allergies/Adverse Reactions: No Allergies [NKDA] Allergy (Verified 04/23/17 17:23)
--- NOTE | 2017-05-05 18:52 | NEUROPROG ---
Assessment: [id number] CC: Dr. Pak consulted neurology for stroke. Results placed in the EMR for her review. HPI: Patient had a cardiac cath on 05/04/17 w/o any complications. He was noted to be normal at 8 pm that night. At 8 am the next morning he was noted to have right facial weakness and slurred speech. He was brought to [facility] ER where brain MRI showed a left internal capsule stroke. CTA head/neck showed bilateral carotid stenosis > 50% but no occluded intracranial vessels or acute thrombosis. Pt last known normal > 6 hours so not a TPA candidate. TTE showed reduced EF 30-35% with akinetic LV apical movement. Pts aspirin was changed to plavix. I initially saw the patient on 05/05/17 and noted he had right lower facial weakness and dysarthric speech. PMHx: prothrombin clotting d/o, HTN, h/o [place], left internal capsule lacunar stroke 05/05/17 Home Meds: ASA 81 mg qd, budesonide/formoterol, Ca/Vit D, losartan, rosuvastatin , ventolin SHx: former tobacco user FHx: daughter alive ROS: Pt denied acute fever, total vision loss, active severe chest pain, respiratory failure, total body severe rash, total bowel/bladder incontinence, psychosis, active seizures, or active bleeding O: VS reviewed General: Alert Eyes: Fundoscopic exam not able to visualize optic disks CV: Heart RRR, no murmur, no carotid bruit Lungs: Clear to auscultation bilaterally, no rhonchi or rales Neuro: - Mental: . Oriented x person/place/date . concentration appears normal . speech fluency/comprehension normal . memory appears normal . fund of knowledge appear intact - Cranial Nerves: . II: PERRL, VFFTC . III/IV/: EOMI, no nystagmus, normal smooth pursuits, no Ptosis . V: facial sensation intact to LT . VII: right lower facial weakness moderate . VIII: hearing intact to conversation . IX/X: mild dysarthric speech . XI: SCM 5/5 B/L strength . XII: tongue protrudes midline w/nl strength - Motor: . Tone: normal tone in all 4 extremity . Strength: no pronator drift, strength 5/5 throughout (B/L delt, bic, tri, hand golf instructor, hf/he, df/pf) - Reflexes: B/L bic/BR/patella 2/4 - Sensory: all 4 extremity intact to light touch - Coord: [id number]-[id number] wnl, NATHANAEL wnl, [id number] wnl - Gait: deferred - NIH SS 3 (right moderate facial weakness, mild dysarthric speech) Labs: 05/05/17- CBC wnl, CMP wnl Rads: 05/05/17- Brain MRI w/o con: left internal capsule stroke (I personally visualized the images on 05/05/17) 05/05/17- CTA head/neck: bilateral carotid stenosis 54-56%, no occlusions seen 05/05/17- TTE: 30-35% EF with akinetic apical LV, bubble study inconclusive Assessment: 1. Symptomatic Left Internal Carotid Artery Stenosis (>50%) causing left internal capsule stroke on 05/05/17: Will also assess heart with additional TTE w /contrast to exclude cardiac thrombus. At this time it is felt the carotid stenosis is the most likely cause of his stroke. 2. Asymptomatic Right Internal Carotid Stenosis 3. Prior cardiac infarction with EF of 30-35% 4. Venous Clotting Disorder Plan: - 24 hour telemetry - Will have Tru Gavin (surgeon) evaluate suspected symptomatic left internal carotid artery stenosis - TTE with contrast to fully exclude cardiac thrombus given reduced EF (Case Discussed with Dr. Benjamin Brooks, cardiology) - hematology discussed with hospitalist and did not recommend anticoagulation at this time - Change aspirin to plavix 75 mg qd (stroke occurred on aspirin) - Labs: Lipids, H1AC - Speech therapy/PT/OT - Blood pressure < 220/120 x 72 hours then < 140/90 - DVT prophy per hospitalist - F/U in neurology clinic 1-4 weeks after discharge Neurology will follow closely Objective: Vital Signs Temp Pulse Resp BP Pulse Ox 37 C 74 18 150/79 H 93 05/05/17 16:07 05/05/17 16:07 05/05/17 16:07 05/05/17 16:07 05/05/17 16:07 PT 13.0 SEC (12.0-15.0) 05/05/17 09:00 INR 0.99 (0.83-1.16) 05/05/17 09:00 Allergies/Adverse Reactions: No Allergies [NKDA] Allergy (Verified 04/23/17 17:23)
[2017-05-05] MEDS: BUDESONIDE/FORMOTEROL 160/4.5 60 PUFFS/MDI IH SCH (22:09)
[2017-05-06] MEDS: ENOXAPARIN 40 MG/0.4 ML SYR SC SCH (08:23)
[2017-05-06] MEDS: CLOPIDOGREL BISULFATE 75 MG TAB PO SCH (08:24)
[2017-05-06] MEDS: ATORVASTATIN CALCIUM 40 MG TAB PO SCH (08:24)
[2017-05-06] MEDS: BUDESONIDE/FORMOTEROL 160/4.5 60 PUFFS/MDI IH SCH ×2 (08:39→21:56)
--- NOTE | 2017-05-06 09:37 | HOSPPROG ---
<Reese Jones - Last Filed: 05/06/17 10:10> Hospitalist Progress Note Objective: Vital Signs Temp Pulse Resp BP Pulse Ox 36.7 C 96 16 146/91 H 96 05/06/17 07:30 05/06/17 08:40 05/06/17 08:40 05/06/17 07:30 05/06/17 08:40 05/05/17 05/06/17 05/07/17 05:59 05:59 05:59 Intake Total 500 Balance 500 PT 13.0 SEC (12.0-15.0) 05/05/17 09:00 INR 0.99 (0.83-1.16) 05/05/17 09:00 ICD10 Worksheet Patient Problems: Problems Problem Status Onset Acute ischemic stroke Acute <Kasia Pak - Last Filed: 05/06/17 15:47> Hospitalist Progress Note Assessment/Plan: Ischemic CVA - No TpA, >12 hrs since last seen normal to time of arrival. CT head neg. CTA head and neck neg for lg vessel occlusion, but >50% b/l carotid stenosis noted. Brain MRI shows acute lacunar infarct left caudate body, unlikely region for embolic stroke. Potential etiologies of CVA: carotid stenosis, LV thrombus (note reduced EF on angiogram), clotting disorder less likely, though note father of CVA and sister had PE from same clotting disorder, A fib -cont permissive hypertension, treat for SBP >220 or DBP >120 -resume home meds in 1-2 days -cont to monitor on telemetry, consider prolonged outpt cardiac event monitor if no other source found as 20% of CVA pts turn up with A fib -echo shows EF 30-35% with akinetic apex- definity study this am to better r/ o LV thrombus (discussed with cards, this contrast study is more sensitive for LV thrombus than [place]) -discussing possible anticoagulation with cards given reduced EF, though per WARCEF trial 2012, no benefit found unless LV thrombus present -changed to plavix since CVA occurred on ASA -discussed with hematology, his clotting disorder is not an indication for AC , heme will consult today -vascular surgery consult today regarding carotid stenosis -cont high dose statin Ischemic cardiomyopathy - Nuclear stress test showed e/o prior anteroseptal IL and EF 28%. Angiogram 05/04 showed single vessel disease in LAD with EF 30-35%. 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 COPD - stable, cont outpt meds ?depression - will request behavioral health industrial organizational psychologist to visit with patient -may benefit from celexa H/O heavy alcohol use - down to 2 beers per day, no e/o withdrawal here. Cont to monitor DVT PPLX - Lovenox Full code Dispo - cont inpt, acute PT/OT, inpt rehab eval planned Subjective: Pt doing ok. He notes having balance problems. Still dysarthric. No CP or SOB. Eating ok. notes he is depressed, worse since he quit heavy drinking. Objective: Vital Signs Temp Pulse Resp BP Pulse Ox 36.7 C 96 16 146/91 H 96 05/06/17 07:30 05/06/17 08:40 05/06/17 08:40 05/06/17 07:30 05/06/17 08:40 05/05/17 05/06/17 05/07/17 05:59 05:59 05:59 Intake Total 500 Balance 500 PT 13.0 SEC (12.0-15.0) 05/05/17 09:00 INR 0.99 (0.83-1.16) 05/05/17 09:00 - Physical Exam Constitutional: no apparent distress Eyes: PERRL Ears, Nose, Mouth, Throat: moist mucous membranes, other (no carotid bruits) Cardiovascular: regular rate and rhythym Respiratory: no respiratory distress, clear to auscultation Gastrointestinal: normoactive bowel sounds, soft, non-tender abdomen Skin: warm Musculoskeletal: other (mild RUE/RLE weakness) Neurologic: AAOx3, facial droop, other (dysarthria, mild right facial droop, slight right sided weakness) Psychiatric: interacting appropriately
[2017-05-06] MEDS ORDERED: PERFLUTREN LIPID MICROSPHERES 1.1 MG/ML VIAL IV ONE (09:45)
--- NOTE | 2017-05-06 09:56 | NEUROPROG ---
Assessment: [id number] CC: F/U for stroke Narrative Summary: Patient had a cardiac cath on 05/04/17 w/o any complications. He was noted to be normal at 8 pm that night. At 8 am the next morning he was noted to have right facial weakness and slurred speech. He was brought to [facility] ER where brain MRI showed a left internal capsule stroke. CTA head/neck showed bilateral carotid stenosis > 50% but no occluded intracranial vessels or acute thrombosis. Pt last known normal > 6 hours so not a TPA candidate. TTE showed reduced EF 30-35% with akinetic LV apical movement. Pts aspirin was changed to plavix. I initially saw the patient on 05/05/17 and noted he had right lower facial weakness and dysarthric speech. HPI: Inpatient F/U 05/06/17. LDL 31 and H1AC 5.2. TTE w/contrast planned today to eval for apical thrombosis. Surgery also to eval symptomatic left carotid stenosis. No new complaints. Pt stable. PMHx: prothrombin clotting d/o, HTN, h/o [place], left internal capsule lacunar stroke 05/05/17 Home Meds: ASA 81 mg qd, budesonide/formoterol, Ca/Vit D, losartan, rosuvastatin , ventolin SHx: former tobacco user FHx: daughter alive ROS: Pt denied acute fever, total vision loss, active severe chest pain, respiratory failure, total body severe rash, total bowel/bladder incontinence, psychosis, active seizures, or active bleeding O: 05/05/17- NIH SS 3 (right moderate facial weakness, mild dysarthric speech) Labs: 05/05/17- CBC wnl, CMP wnl, H1AC 5.2 05/06/17- LDL 31L Rads: 05/05/17- Brain MRI w/o con: left internal capsule stroke 05/05/17- CTA head/neck: bilateral carotid stenosis 54-56%, no occlusions seen 05/05/17- TTE: 30-35% EF with akinetic apical LV, bubble study inconclusive 05/05/17- 24 hour telemetry: no afib seen Assessment: 1. Symptomatic Left Internal Carotid Artery Stenosis (>50%) causing left internal capsule stroke on 05/05/17: Will also assess heart with additional TTE w /contrast to exclude cardiac thrombus. At this time it is felt the carotid stenosis is the most likely cause of his stroke so we will obtain surgical consult for possible CEA. 2. Asymptomatic Right Internal Carotid Stenosis: Will need otpt f/u and monitoring by Dr. Tru Gavin (surgeon) 3. Prior myocardial infarction with EF of 30-35% 4. Venous Clotting Disorder Plan: - Will have Tru Gavin (surgeon) evaluate suspected symptomatic left internal carotid artery stenosis - TTE with contrast to fully exclude cardiac thrombus given reduced EF (Case Discussed with Dr. Benjamin Brooks, cardiology) - hematology discussed with hospitalist and did not recommend anticoagulation at this time - Change aspirin to plavix 75 mg qd (stroke occurred on aspirin) - Speech therapy/PT/OT - Blood pressure < 220/120 x 48 hours then < 140/90 - LDL goal < 70 (31) - H1AC goal < 7.0 (5.2) - F/U in neurology clinic 1-4 weeks after discharge Neurology will follow closely 35 min spent with patient and his as well as discussing case and coordinating care with Dr. Pak, Dr. Brooks, and Dr. Gavin Objective: Vital Signs Temp Pulse Resp BP Pulse Ox 36.7 C 96 16 146/91 H 96 05/06/17 07:30 05/06/17 08:40 05/06/17 08:40 05/06/17 07:30 05/06/17 08:40 05/05/17 05/06/17 05/07/17 05:59 05:59 05:59 Intake Total 500 Balance 500 PT 13.0 SEC (12.0-15.0) 05/05/17 09:00 INR 0.99 (0.83-1.16) 05/05/17 09:00 Allergies/Adverse Reactions: No Allergies [NKDA] Allergy (Verified 04/23/17 17:23)
--- NOTE | 2017-05-06 10:25 | ASMTCMCOM ---
CM Note CM Note Notes: Patient admitted after an ischemic stroke likely d/t carotid artery stenosis. He is s/p cardiac catheterization 05/04. Currently, hospital medicine, neurology, hematology, surgery, and cardiology are following with evals pending. Dr Gavin to see patient today to assess for need for surgery. I spoke with patient's re: discharge planning, and although it's too early to determine what patient will need, we discussed the possibility of SNF v home care v 24 hour supervision at home. Patient's will begin to think about SNFs near their home. An order for an inpatient rehab evaluation has also been placed. CM will follow. Date Signed: 05/06/2017 10:24 AM Electronically Signed By:Lizette Mobley RN
--- NOTE | 2017-05-06 11:54 | GCON ---
[f rep st] CONSULTATION HEMATOLOGY CONSULTATION DATE OF CONSULTATION: 05/06/2017 REFERRING PHYSICIAN: Kasia Pak MD REASON FOR CONSULTATION: Stroke in the setting of a prothrombin gene mutation. HISTORY OF PRESENT ILLNESS: The patient is a 66-year-old man who presented with a left caudate strok e. He has history of coronary artery disease. He developed a facial droop and some slurred speech, and was taken to the emergency department. An MRI revealed an acute infarct in the left caudate. He was not a candidate for thrombolytic therapy and so he was admitted. He was started on Plavix as th e stroke had occurred while he was on aspirin. His neurological deficits are slowly improving. He i s being followed by Neurology. There is greater than 50% left internal carotid artery stenosis and t paragy are considering whether or not to do a carotid endarterectomy. He has a history of the prothrombin gene mutation. He does not have a personal history of venous thr omboembolism. His father of pulmonary emboli and a sister has also had thrombotic events which resulted in the identification of the mutation. The patient's 2 daughters were tested and found to c arry the mutation, but the patient himself has not been tested. He told me that Dr. Vinod jung tested him preoperatively in 2013 at [facility], but I was not able to find any record of those labs i n the [facility] electronic medical record. PAST MEDICAL HISTORY: 1. Coronary artery disease. 2. COPD. 3. Prothrombin gene mutation. CURRENT MEDICATIONS: Plavix 75 mg p.o. daily, Lovenox 40 mg subcutaneously daily, Lipitor. ALLERGIES: He has no known drug allergies. FAMILY HISTORY: Thrombotic history noted above with multiple family members heterozygous for the pro thrombin gene mutation. SOCIAL HISTORY: He is a nonsmoker. Prior heavy alcohol use, but currently does not drink. He is ma rried and lives with his . REVIEW OF SYSTEMS: Pertinent positives in the HPI. A 14-point review of systems was negative. EXAMINATION: VITALS: Temperature was 36.6, blood pressure 147/85, heart rate 90, oxygen saturation 94% on room air. GENERAL: He was an elderly man in no acute distress. Sclerae anicteric. Orophary nx is clear. NECK: Supple. No lymphadenopathy. LUNGS: Clear to auscultation bilaterally. CARDIA C: Regular rate and rhythm. No murmurs, gallops, rubs. ABDOMEN: Normoactive bowel sounds, nontend er, nondistended. EXTREMITIES: Without edema. NEUROLOGIC: He is alert and oriented x3. He has so me slurred speech and a very mild right facial droop. LABORATORY DATA: CBC and comprehensive metabolic panel were normal. IMPRESSION: This is a 66-year-old man with an acute stroke who also has a history of a prothrombin g kaden mutation. That abnormality is generally associated with risk of venous thromboembolism, but does not appear to be associated with arterial thromboses such as stroke or coronary artery disease. The refore, I do not think that it needs to change his management, except for the fact that he should be on prophylactic Lovenox while he is in the hospital and also for about a week postoperatively if he d oes go to carotid endarterectomy. Because I cannot find documentation of his genetic evaluation, I will repeat the prothrombin gene mut ation analysis as well as other inherited thrombophilias including factor 5 Leiden, protein C, protei n S, and antithrombin III. Certainly, if he is a homozygote or a compound heterozygote for other abn ormalities, this would greatly increase his risk of venous thromboembolism and might make me reconsid er whether he should be on primary prophylaxis. This is unlikely, however, given that he has never h ad a venous thrombotic event. I will review results when available or call him if he is discharged a t that time. I will continue to follow with you while he is in the hospital. /[id number]/MODL
[2017-05-06] MEDS ORDERED: ALBUTEROL 60 PUFFS/8 GM MDI IH PRN (12:00)
--- NOTE | 2017-05-06 14:44 | ECHO ---
[email or web address] [address] [address] Main: [phone] Fax: Transthoracic Echocardiogram Name: RAQUEL OLEA MR#: [id number] Study Date: 05/06/2017 Study Time: 10:14 AM Date of : 1950 Age: 66 year(s) Height: ( ) Weight: ( ) BSA: Gender: Male Examination: Limited Echo Indication: Definity, Eval for Apical Thrombus Image Quality: Contrast: Requested by: Kasia Pak BP: / Heart Rate: Rhythm: Indication: Definity, Eval for Apical Thrombus Procedure Staff Outreach Assistant: Lazaro Howell Reading Physician: Benjamin Brooks Requesting Provider: Conclusions: This is a limited echocardiogram to evaluate for LV apical thrombus. Definity contrast was used No evidence of apical thrombus Measurements: Chambers Valvular Assessment AV/MV Valvular Assessment TV/PV Normal Normal Normal Name Value Range Name Value Range Name Value Range Continued Measurements: Findings: Exam Comments: .165 mg of Definity was utilited. There is no obvious apical thrombus.. (No Signature Object) Patient: RAQUEL OLEA Study Date: 05/06/2017 Page 1 of 1 10:14 AM [id number]
--- NOTE | 2017-05-06 14:44 | ECHO ---
[email or web address] [address] [address] Main: [phone] Fax: Transthoracic Echocardiogram Name: RAQUEL OLEA MR#: [id number] Study Date: 05/06/2017 Study Time: 10:14 AM Date of : 1950 Age: 66 year(s) Height: ( ) Weight: ( ) BSA: Gender: Male Examination: Limited Echo Indication: Definity, Eval for Apical Thrombus Image Quality: Contrast: Requested by: Kasia Pak BP: / Heart Rate: Rhythm: Indication: Definity, Eval for Apical Thrombus Procedure Staff Engineering And Operations Director: Lazaro Howell Reading Physician: Benjamin Brooks Requesting Provider: Conclusions: This is a limited echocardiogram to evaluate for LV apical thrombus. Definity contrast was used No evidence of apical thrombus Measurements: Chambers Valvular Assessment AV/MV Valvular Assessment TV/PV Normal Normal Normal Name Value Range Name Value Range Name Value Range Continued Measurements: Findings: Exam Comments: .165 mg of Definity was utilited. There is no obvious apical thrombus.. (No Signature Object) Patient: RAQUEL OLEA Study Date: 05/06/2017 Page 1 of 1 10:14 AM [id number]
--- NOTE | 2017-05-06 14:44 | ECHO ---
[email or web address] [address] [address] Main: [phone] Fax: Transthoracic Echocardiogram Name: RAQUEL OLEA MR#: [id number] Study Date: 05/06/2017 Study Time: 10:14 AM Date of : 1950 Age: 66 year(s) Height: ( ) Weight: ( ) BSA: Gender: Male Examination: Limited Echo Indication: Definity, Eval for Apical Thrombus Image Quality: Contrast: Requested by: Kasia Pak BP: / Heart Rate: Rhythm: Indication: Definity, Eval for Apical Thrombus Procedure Staff Pantry Attendant: Lazaro Howell Reading Physician: Benjamin Brooks Requesting Provider: Conclusions: This is a limited echocardiogram to evaluate for LV apical thrombus. Definity contrast was used No evidence of apical thrombus Measurements: Chambers Valvular Assessment AV/MV Valvular Assessment TV/PV Normal Normal Normal Name Value Range Name Value Range Name Value Range Continued Measurements: Findings: Exam Comments: .165 mg of Definity was utilited. There is no obvious apical thrombus.. (No Signature Object) Patient: RAQUEL OLEA Study Date: 05/06/2017 Page 1 of 1 10:14 AM [id number]
--- NOTE | 2017-05-06 16:57 | SOAPPROG ---
ZHNANA Progress Note Assessment/Plan: 1. CAD - Pt presented with an abnormal EKG and was found to have an anterior FL. His FL likely occurred in 2014 when he quite smoking. Angiogram on demonstrated an occluded LAD with no significant obstructive disease involving the LCX and RCA. He denies symptoms of angina. --> Continue secondary prevention with asa, plavix, and lipitor --> Resume losartan when OK with neurology --> No BB secondary to lung disease. 2. ICM - Pt has an ICM with an EF of 30 to 35%. He reports class I to II symptoms at this time. --> Resume losartan when OK with neurology --> No BB secondary to lung disease --> follow up with Dr. Mosley regarding ICD placment 3. CVA - Pt presented with a CVA on 05/05/17. --> Appreciate Dr. Eid input --> No evidence of LV apical thrombus on definity study 05/06/17 16:59 Subjective: No chest pain No orthopnea or PND Continued neurologic deficit Objective: Vital Signs Temp Pulse Resp BP Pulse Ox 36.8 C 102 H 16 148/84 H 96 05/06/17 15:11 05/06/17 15:11 05/06/17 15:11 05/06/17 15:11 05/06/17 15:11 05/05/17 05/06/17 05/07/17 05:59 05:59 05:59 Intake Total 500 Balance 500 PT 13.0 SEC (12.0-15.0) 05/05/17 09:00 INR 0.99 (0.83-1.16) 05/05/17 09:00 Physical Exam - Physical Exam General Appearance: alert, no apparent distress Respiratory: lungs clear Cardiac/Chest: regular rate, rhythm Skin: other (echymosis R groin) Extremities: other (No hematoma) Neuro/Psych: alert, oriented x 3 ICD10 Worksheet Patient Problems: Problems Problem Status Onset Acute ischemic stroke Acute
--- NOTE | 2017-05-06 17:46 | SOAPPROG ---
ZHANNA Progress Note Assessment/Plan: Assessment: 66-year-old male seen after CVA involving his left side/ CTA reveals bilateral carotid stenoses left slightly greater than right and only about 60% stenotic/ the lesion however cell sick heavily calcified and irregular Neuro exam is fairly symmetric except for his dysarthria HEENT reveals no definite bruits Chest clear Cor regular rhythm Impression is possible CVA secondary to left carotid stenosis. It is difficult to prove that etiology but I think he should be considered for left carotid endarterectomy after medically recovery in 2-3 weeks He seems to be recovering well Plan: Will discuss with Neurology and follow up as outpatient/continue aspirin and statin drug 05/06/17 17:42 Objective: Vital Signs Temp Pulse Resp BP Pulse Ox 36.8 C 102 H 16 148/84 H 96 05/06/17 15:11 05/06/17 15:11 05/06/17 15:11 05/06/17 15:11 05/06/17 15:11 05/05/17 05/06/17 05/07/17 05:59 05:59 05:59 Intake Total 500 1150 Balance 500 1150 PT 13.0 SEC (12.0-15.0) 05/05/17 09:00 INR 0.99 (0.83-1.16) 05/05/17 09:00 ICD10 Worksheet Patient Problems: Problems Problem Status Onset Acute ischemic stroke Acute
[2017-05-07] MEDS: ATORVASTATIN CALCIUM 40 MG TAB PO SCH (08:14)
[2017-05-07] MEDS: CLOPIDOGREL BISULFATE 75 MG TAB PO SCH (08:15)
[2017-05-07] MEDS: BUDESONIDE/FORMOTEROL 160/4.5 60 PUFFS/MDI IH SCH (08:16)
[2017-05-07] MEDS: ENOXAPARIN 40 MG/0.4 ML SYR SC SCH (08:16)
[2017-05-07] MEDS ORDERED: ASPIRIN 81 MG CHEWABLE TAB PO SCH (09:00)
--- NOTE | 2017-05-07 11:25 | NEUROPROG ---
Assessment: [id number] CC: F/U for stroke Narrative Summary: Patient had a cardiac cath on 05/04/17 w/o any complications. He was noted to be normal at 8 pm that night. At 8 am the next morning he was noted to have right facial weakness and slurred speech. He was brought to [facility] ER where brain MRI showed a left internal capsule stroke. CTA head/neck showed bilateral carotid stenosis > 50% but no occluded intracranial vessels or acute thrombosis. Pt last known normal > 6 hours so not a TPA candidate. TTE showed reduced EF 30-35% with akinetic LV apical movement. Pts aspirin was changed to plavix. I initially saw the patient on 05/05/17 and noted he had right lower facial weakness and dysarthric speech. Inpatient F/U 05/06/17. LDL 31 and H1AC 5.2. TTE w/contrast planned today to eval for apical thrombosis. Surgery also to eval symptomatic left carotid stenosis. No new complaints. Pt stable. HPI: Inpatient F/U 05/07/17. Dr. Gavin considering surgery on left carotid but wants to wait 2-3 weeks. Hematology consulted and found no cause for anticoagulation at this time. Dr. Banks performed contrast TTE study and found no thrombus in heart. Pt denied new complaints and is stable. PMHx: prothrombin clotting d/o, HTN, h/o [place], left internal capsule lacunar stroke 05/05/17 Home Meds: ASA 81 mg qd, budesonide/formoterol, Ca/Vit D, losartan, rosuvastatin , ventolin SHx: former tobacco user FHx: daughter alive ROS: Pt denied acute fever, total vision loss, active severe chest pain, respiratory failure, total body severe rash, total bowel/bladder incontinence, psychosis, active seizures, or active bleeding O: 05/05/17- NIH SS 3 (right moderate facial weakness, mild dysarthric speech) Labs: 05/05/17- CBC wnl, CMP wnl, H1AC 5.2 05/06/17- LDL 31L Rads: 05/05/17- Brain MRI w/o con: left internal capsule stroke 05/05/17- CTA head/neck: bilateral carotid stenosis 54-56%, no occlusions seen 05/05/17- TTE: 30-35% EF with akinetic apical LV, bubble study inconclusive 05/05/17- 24 hour telemetry: no afib seen 05/06/17- TTE w/contrast: no apical thrombus seen Assessment: 1. Symptomatic Left Internal Carotid Artery Stenosis (>50%) causing left internal capsule stroke on 05/05/17: At this time it is felt the carotid stenosis is the most likely cause so pt will see surgeon otpt for consideration of CEA. Pt with known reduced EF in heart so that could also be a cause. I will plan on dual antiplatelet therapy to reduce stroke risk. 2. Asymptomatic Right Internal Carotid Stenosis: Will need otpt f/u and monitoring by Dr. Tru Gavin (surgeon) 3. Prior myocardial infarction with EF of 30-35% 4. Venous Clotting Disorder: hematology saw 05/06/17 and did not recommend anticoagulation as this is a venous clotting disorder and no venous clot found. Plan: - Otpt f/u with Dr. Gavin for consideration of left CEA - hematology discussed with hospitalist and did not recommend anticoagulation at this time - Recommend both aspirin 81 mg qd and plavix 75 mg qd for stroke prevention ( stroke occurred on aspirin) - Speech therapy/PT/OT - Blood pressure < 220/120 x 24 hours then < 140/90 - LDL goal < 70 (31), continue statin - H1AC goal < 7.0 (5.2) - F/U in neurology clinic 1-4 weeks after discharge Neurology will sign off. Objective: Vital Signs Temp Pulse Resp BP Pulse Ox 36.7 C 99 20 166/84 H 94 05/07/17 11:23 05/07/17 11:23 05/07/17 11:23 05/07/17 11:23 05/07/17 11:23 05/06/17 05/07/17 05/08/17 05:59 05:59 05:59 Intake Total 500 1150 450 Balance 500 1150 450 PT 13.0 SEC (12.0-15.0) 05/05/17 09:00 INR 0.99 (0.83-1.16) 05/05/17 09:00 Allergies/Adverse Reactions: No Allergies [NKDA] Allergy (Verified 04/23/17 17:23)
[2017-05-07 12:03] VITALS: BP 132/85; PULSE 92; RESP 16; TEMP 98.2; O2SAT 93
--- NOTE | 2017-05-07 12:06 | ASMTCMCOM ---
CM Note CM Note Notes: Spoke with PT re: patient's d/c plan - they feel he is appropriate to go home with family support and outpatient PT. I then spoke with the patient and his , and they are ok with this plan. They will obtain the DME needed and follow up with an outpatient PT. Gretta from [facility] Acute Therapy provided family with list/suggestions. Date Signed: 05/07/2017 12:05 PM Electronically Signed By:Lizette Mobley RN
--- NOTE | 2017-05-07 12:06 | ASMTCMCOM ---
CM Note CM Note Notes: Spoke with PT re: patient's d/c plan - they feel he is appropriate to go home with family support and outpatient PT. I then spoke with the patient and his , and they are ok with this plan. They will obtain the DME needed and follow up with an outpatient PT. Gretta from [facility] Acute Therapy provided family with list/suggestions. Date Signed: 05/07/2017 12:05 PM Electronically Signed By:Lizette Mobley RN
--- NOTE | 2017-05-07 12:06 | ASMTCMCOM ---
CM Note CM Note Notes: Spoke with PT re: patient's d/c plan - they feel he is appropriate to go home with family support and outpatient PT. I then spoke with the patient and his , and they are ok with this plan. They will obtain the DME needed and follow up with an outpatient PT. Gretta from [facility] Acute Therapy provided family with list/suggestions. Date Signed: 05/07/2017 12:05 PM Electronically Signed By:Lizette Mobley RN
--- NOTE | 2017-05-07 20:43 | GDS ---
[f rep st] DISCHARGE SUMMARY DISCHARGE DIAGNOSES: 1. Acute stroke, left internal capsule. 2. Symptomatic left internal carotid artery stenosis. 3. Ischemic cardiomyopathy. 4. Chronic systolic congestive heart failure, ejection fraction 30%. 5. Coronary artery disease, status post previous anterior myocardial infarction with 100% left anter ior descending occlusion. 6. Prothrombin gene mutation. 7. Depression. 8. Alcohol abuse. 9. Hypertension. HISTORY: The patient is a 66-year-old male who had an outpatient cardiac angiogram after a stress te st showed an old anterior septal [place]. This revealed single-vessel coronary artery disease in the LAD, and no intervention was performed. Suspicion is he had an old [place] in 2014; at that time he had chest pain but did not seek medical care. He now has an ischemic cardiomyopathy and an EF of 30%. The morning after at 8 a.m. he was noted by his to have facial drooping and slurred speech, and she brought him to the emergency room. His last time seen normal was 8:30 the night before, so we di d not qualify for tPA. He was seen here in consultation with Neurology. There were multiple possibl e etiologies for source of stroke, but eventually it was decided it was symptomatic left carotid mian ry stenosis. It is only 60% stenosed but very calcified and irregular. He was seen by Dr. Gavin who is recommending carotid endarterectomy in 2-3 weeks. There was no evidence of intracardiac thrombus , and he did not have any AFib on his monitor technician. Treatment for stroke, therefore, will be Plav ix and aspirin, as this event did occur while he was already on a daily aspirin. Hyperlipidemia is w ell controlled. His LDL here is 31, on Crestor. He is doing quite well at the time of discharge and recommended for outpatient PT, OT, and speech the rapy. DISCHARGE MEDICATIONS: Please see computer record for full detailed list. New medications: 1. Plavix 75 mg p.o. daily. 2. Zoloft 50 mg p.o. daily per patient and request for initiating treatment for his depression. ADDITIONAL DISCHARGE INSTRUCTIONS: 1. Okay to start losartan with this evening's dosing after permissive hypertension was allowed for 4 8 hours. 2. Follow up with Dr. Gavin for planned carotid endarterectomy in 2-3 weeks. 3. Outpatient PT, OT, and speech therapy. 4. Repeat hypercoagulable testing by Hematology and is pending at discharge. This will be followed up with Dr. Callahan. Greater than 30 minutes' time was spent arranging this discharge. Patient was seen and examined by yessy carpio on the day of discharge. /[id number]/MODL
--- NOTE | 2017-05-07 20:43 | GDS ---
[f rep st] DISCHARGE SUMMARY DISCHARGE DIAGNOSES: 1. Acute stroke, left internal capsule. 2. Symptomatic left internal carotid artery stenosis. 3. Ischemic cardiomyopathy. 4. Chronic systolic congestive heart failure, ejection fraction 30%. 5. Coronary artery disease, status post previous anterior myocardial infarction with 100% left anter ior descending occlusion. 6. Prothrombin gene mutation. 7. Depression. 8. Alcohol abuse. 9. Hypertension. HISTORY: The patient is a 66-year-old male who had an outpatient cardiac angiogram after a stress te st showed an old anterior septal [place]. This revealed single-vessel coronary artery disease in the LAD, and no intervention was performed. Suspicion is he had an old [place] in 2014; at that time he had chest pain but did not seek medical care. He now has an ischemic cardiomyopathy and an EF of 30%. The morning after at 8 a.m. he was noted by his to have facial drooping and slurred speech, and she brought him to the emergency room. His last time seen normal was 8:30 the night before, so we di d not qualify for tPA. He was seen here in consultation with Neurology. There were multiple possibl e etiologies for source of stroke, but eventually it was decided it was symptomatic left carotid mian ry stenosis. It is only 60% stenosed but very calcified and irregular. He was seen by Dr. Gavin who is recommending carotid endarterectomy in 2-3 weeks. There was no evidence of intracardiac thrombus , and he did not have any AFib on his phototypesetting equipment monitor. Treatment for stroke, therefore, will be Plav ix and aspirin, as this event did occur while he was already on a daily aspirin. Hyperlipidemia is w ell controlled. His LDL here is 31, on Crestor. He is doing quite well at the time of discharge and recommended for outpatient PT, OT, and speech the rapy. DISCHARGE MEDICATIONS: Please see computer record for full detailed list. New medications: 1. Plavix 75 mg p.o. daily. 2. Zoloft 50 mg p.o. daily per patient and request for initiating treatment for his depression. ADDITIONAL DISCHARGE INSTRUCTIONS: 1. Okay to start losartan with this evening's dosing after permissive hypertension was allowed for 4 8 hours. 2. Follow up with Dr. Gavin for planned carotid endarterectomy in 2-3 weeks. 3. Outpatient PT, OT, and speech therapy. 4. Repeat hypercoagulable testing by Hematology and is pending at discharge. This will be followed up with Dr. Callahan. Greater than 30 minutes' time was spent arranging this discharge. Patient was seen and examined by yessy carpio on the day of discharge. /[id number]/MODL
--- NOTE | 2017-05-07 20:43 | GDS ---
[f rep st] DISCHARGE SUMMARY DISCHARGE DIAGNOSES: 1. Acute stroke, left internal capsule. 2. Symptomatic left internal carotid artery stenosis. 3. Ischemic cardiomyopathy. 4. Chronic systolic congestive heart failure, ejection fraction 30%. 5. Coronary artery disease, status post previous anterior myocardial infarction with 100% left anter ior descending occlusion. 6. Prothrombin gene mutation. 7. Depression. 8. Alcohol abuse. 9. Hypertension. HISTORY: The patient is a 66-year-old male who had an outpatient cardiac angiogram after a stress te st showed an old anterior septal [place]. This revealed single-vessel coronary artery disease in the LAD, and no intervention was performed. Suspicion is he had an old [place] in 2014; at that time he had chest pain but did not seek medical care. He now has an ischemic cardiomyopathy and an EF of 30%. The morning after at 8 a.m. he was noted by his to have facial drooping and slurred speech, and she brought him to the emergency room. His last time seen normal was 8:30 the night before, so we di d not qualify for tPA. He was seen here in consultation with Neurology. There were multiple possibl e etiologies for source of stroke, but eventually it was decided it was symptomatic left carotid mian ry stenosis. It is only 60% stenosed but very calcified and irregular. He was seen by Dr. Gavin who is recommending carotid endarterectomy in 2-3 weeks. There was no evidence of intracardiac thrombus , and he did not have any AFib on his court monitor. Treatment for stroke, therefore, will be Plav ix and aspirin, as this event did occur while he was already on a daily aspirin. Hyperlipidemia is w ell controlled. His LDL here is 31, on Crestor. He is doing quite well at the time of discharge and recommended for outpatient PT, OT, and speech the rapy. DISCHARGE MEDICATIONS: Please see computer record for full detailed list. New medications: 1. Plavix 75 mg p.o. daily. 2. Zoloft 50 mg p.o. daily per patient and request for initiating treatment for his depression. ADDITIONAL DISCHARGE INSTRUCTIONS: 1. Okay to start losartan with this evening's dosing after permissive hypertension was allowed for 4 8 hours. 2. Follow up with Dr. Gavin for planned carotid endarterectomy in 2-3 weeks. 3. Outpatient PT, OT, and speech therapy. 4. Repeat hypercoagulable testing by Hematology and is pending at discharge. This will be followed up with Dr. Callahan. Greater than 30 minutes' time was spent arranging this discharge. Patient was seen and examined by yessy carpio on the day of discharge. /[id number]/MODL
[2017-05-07] MEDS ORDERED: LOSARTAN POTASSIUM 50 MG TAB PO SCH (21:00)
[2017-05-07] MEDS ORDERED: ROSUVASTATIN CALCIUM 10 MG TAB PO SCH (21:00)
[2017-05-08] MEDS ORDERED: ROSUVASTATIN CALCIUM 10 MG TAB PO SCH (21:00)
== END 2017-05-07 16:21 | disposition home or self-care (01) | DRG 65 ==
LOC: F3N 13:10
PROVIDERS: ADMIT Hospitalist; ATTEND Hospitalist
DX: I63.232 Cerebral infarction due to unspecified occlusion or stenosis of left carotid arteries (principal); R29.703 NIHSS score 3; I25.82 Chronic total occlusion of coronary artery; D68.52 Prothrombin gene mutation; I25.10 Atherosclerotic heart disease of native coronary artery without angina pectoris; I11.0 Hypertensive heart disease with heart failure; I50.22 Chronic systolic (congestive) heart failure; J44.9 Chronic obstructive pulmonary disease, unspecified; Z87.891 Personal history of nicotine dependence; I25.2 Old myocardial infarction; E78.5 Hyperlipidemia, unspecified
CPT/HCPCS: 82947-QW; 85300-90; 85303-90; 85306-90; 92523-GN; 92610-GN; 97112-GP; 97116-GP; 97162-GP; 97166-GO; 97535-GO; C1760; C8924; G8978-GP-CI; G8979-GP-CI; G8980-GP-CI; G8987-GO-CJ; G8988-GO-CI; G8989-GO-CI; G8996-GN-CI; G8997-GN-CH; G8999-GN-CJ; G9158-GN-CJ; G9186-GN-CJ; J1644; J1650; J2250; J3010; Q9957; Q9967

== ENCOUNTER 2017-05-26 09:38 | Inpatient (IN) | payer OTHER ==
[2017-05-26] MEDS ORDERED: ceFAZolin 2 GM/SWFI 2 GM/20 ML SYR IVP ONE ×2 (09:57→10:00)
[2017-05-26] MEDS ORDERED: LIDOCAINE 1% 2 ML INJ ONE (10:05)
[2017-05-26] MEDS ORDERED: LR 1,000 ML IV ONE (10:14)
[2017-05-26] MEDS ORDERED: LIDOCAINE 1% 2 ML INJ ID PRN (10:14)
[2017-05-26] MEDS ORDERED: fentaNYL 250 MCG/5 ML INJ ONE (17:17)
[2017-05-26] MEDS ORDERED: ceFAZolin 2 GM/SWFI 20 ML SYR IVP ONE (17:24)
[2017-05-26] MEDS ORDERED: MIDAZOLAM 2 MG/2 ML VIAL IVP ONE (17:25)
[2017-05-26] MEDS ORDERED: MIDAZOLAM 2 MG/2 ML VIAL ONE (17:25)
--- NOTE | 2017-05-26 17:28 | PDANEPAE ---
ANE History of Present Illness 66 year old male s/p CVA 3 weeks ago with Right sided weakness secondary to carotid stenosis. ANE Past Medical History - Cardiovascular History Hx Hypertension: Yes Hx Arrhythmias: No Hx Chest Pain: Yes Hx Coronary Artery / Peripheral Vascular Disease: Yes Hx CHF / Valvular Disease: No Hx Palpitations: No Cardiovascular History Comment: [place] 2015November - Pulmonary History Hx COPD: Yes Hx Asthma/Reactive Airway Disease: Yes Hx Recent Upper Respiratory Infection: No Hx Oxygen in Use at Home: No Hx Sleep Apnea: No Sleep Apnea Screening Result - Last Documented: Positive Pulmonary History Comment: EMPHYSEMA - Neurologic History Hx Cerebrovascular Accident: Yes Hx Seizures: No Hx Dementia: No Neurologic History Comment: STROKE 05/05 - Endocrine History Hx Diabetes: No - Renal History Hx Renal Disorders: No - Liver History Hx Hepatic Disorders: No - Neurological & Psychiatric Hx Hx Neurological and Psychiatric Disorders: Yes Neurological / Psychiatric History Comment: Weakness on right, some receptive and expressive aphasia - Cancer History Hx Cancer: No - Congenital Disorder History Hx Congenital Disorders: No - GI History Hx Gastrointestinal Disorders: No - Other Health History Other Health History: easily bruised, skin is fragile - Chronic Pain History Chronic Pain: No - Surgical History Prior Surgeries: 2014 hernia repair. ANE Review of Systems Review of Systems: - Exercise capacity METS (RN): 3 METS ANE Patient History - Allergies Allergies/Adverse Reactions: No Allergies [NKDA] Allergy (Verified 04/23/17 17:23) - Home Medications Home Medications: Aspirin [Aspirin 81mg (*)] 81 mg PO HS 04/27/17 [Last Taken 05/25/17 20:00] Budesonide/Formoterol 160/4.5 [Symbicort 160-4.5 Mcg Inh (*)] 2 puffs IH BID [Last Taken 05/26/17 07:00] Calcium Carbonate/Vitamin D3 [CALCIUM 600 + VIT D TABLET] 1 each PO HS 04/27/17 [Last Taken 05/25/17 20:00] Losartan Potassium [Cozaar 50 mg (*)] 100 mg PO HS 04/27/17 [Last Taken 20:00] Rosuvastatin Calcium [Crestor] 10 mg PO HS 04/27/17 [Last Taken 05/25/17 20:00] Clopidogrel Bisulfate [Plavix (*)] 75 mg PO HS 05/22/17 [Last Taken 05/25/17 20: 00] Sertraline HCl [Zoloft 100mg (*)] 100 mg PO HS 05/22/17 [Last Taken 05/25/17 20: 00] - NPO status NPO Since - Liquids (Date): 05/26/17 NPO Since - Liquids (Time): 07:00 NPO Since - Solids (Date): 05/25/17 NPO Since - Solids (Time): 20:00 - Smoking Hx Smoking Status: Former smoker - Family Anes Hx Family Hx Anesthesia Complications: none ANE Labs/Vital Signs - Vital Signs Blood Pressure: 145/85 Heart Rate: 68 Respiratory Rate: 16 O2 Sat (%): 93 Height: 190.5 cm Weight: 81.647 kg ANE Physical Exam - Airway Neck exam: FROM Mallampati Score: Class 2 Mouth exam: normal dental/mouth exam - Pulmonary Pulmonary: no rales or rhonchi - Cardiovascular Cardiovascular: regular rate and rhythym - ASA Status ASA Status: III ANE Anesthesia Plan Anesthesia Plan: general endotracheal anesthesia Lines/Monitors: arterial line
[2017-05-26] MEDS ORDERED: PROPOFOL/EMULSION 500 MG/50 ML BOTTLE IV ONE ×2 (18:02→18:52)
[2017-05-26] MEDS ORDERED: HYDROmorphONE/DILAUDID 1 MG/ML INJ IVP PRN (18:58)
[2017-05-26] MEDS ORDERED: ACETAMINOPHEN 500 MG TAB PO PRN (18:58)
[2017-05-26] MEDS ORDERED: fentaNYL 100 MCG/2 ML INJ IVP PRN (18:58)
[2017-05-26] MEDS ORDERED: LABETALOL HCL 5 MG/ML 20 ML MDV IVP PRN (18:58)
[2017-05-26] MEDS ORDERED: HYDROCODONE/APAP 5/325 TAB PO PRN (18:58)
[2017-05-26] MEDS ORDERED: ALBUTEROL 3 ML DEYVIAL IH PRN (18:58)
[2017-05-26] MEDS ORDERED: NALOXONE HCL 0.4 MG/ML INJ IVP PRN (18:58)
[2017-05-26] MEDS ORDERED: ONDANSETRON 4 MG/2 ML VIAL IVP PRN ×2 (18:58→19:53)
[2017-05-26] MEDS ORDERED: LR 500 ML IV PRN (18:58)
--- NOTE | 2017-05-26 19:51 | POSTOPPROG ---
Post Op Note Date of Operation: 05/26/17 Surgeon: Gunner Gavin Wire Straightener: SANDRA Anesthesiologist: HAIDER Anesthesia: GET(General Endotracheal) Pre-op Diagnosis: CVA, LEFT CAROTID STENOSIS Post-op Diagnosis: SAME Indication: STENOSIS, POSSIBLE SOURCE FO CVA Procedure: LEFT CAROTID ENDARTERECTOMY WITH EEG, SHUNT AND PATCH Findings: HIGH 65% STENOSIS, CALCIFIED Inf/Abcess present in the surg proc area at time of surgery?: No Depth: Organ Space EBL: 50-100 Complications: 0 Specimen(s): PLAQUE
[2017-05-26] MEDS ORDERED: OXYCODONE/APAP 5/325 TAB PO PRN ×2 (19:53→19:57)
[2017-05-26] MEDS ORDERED: ENALAPRILAT DIHYDRATE 1.25 MG/ML VIAL IVP PRN (19:55)
[2017-05-26] MEDS ORDERED: HYDROmorphone HCL/NS/PF 0.4 MG/2 ML SYR IVP PRN (19:57)
--- NOTE | 2017-05-26 20:25 | POSTANESTH ---
Post Anesthetic Evaluation Cardiovascular Status: Normal, Stable Respiratory Status: Normal, Stable Level of Consciousness/Mental Status: Can Participate in Eval Pain Control: Adequate, Prn Tx Ordered Nausea/Vomiting Control: Adequate, Prn Tx Ordered Complications Possibly Related to Anesthesia: None Noted
[2017-05-26] MEDS: BUDESONIDE/FORMOTEROL 160/4.5 60 PUFFS/MDI IH SCH (21:38)
[2017-05-26] MEDS: D5W 1/2 NS 1,000 ML IV SCH (22:23)
[2017-05-26] MEDS: SERTRALINE HCL 100 MG TAB PO SCH (23:04)
[2017-05-26] MEDS: ROSUVASTATIN CALCIUM 10 MG TAB PO SCH (23:04)
[2017-05-26] MEDS: LOSARTAN POTASSIUM 50 MG TAB PO SCH (23:05)
[2017-05-26] MEDS: CLOPIDOGREL BISULFATE 75 MG TAB PO SCH (23:13)
[2017-05-26] MEDS: ASPIRIN 81 MG CHEWABLE TAB PO SCH (23:13)
[2017-05-26] MEDS: CALCIUM CARB W/VIT D 500 MG TAB PO SCH (23:13)
[2017-05-27 05:08] LABS: HEMATOCRIT 39.6 % (40.0-51.0); HEMOGLOBIN 13.1 g/dL (13.7-17.5)
[2017-05-27 05:17] LABS: ANION GAP 13 mEq/L (8-16); CALCIUM 9.1 mg/dL (8.5-10.4); CARBON DIOXIDE 24 mEq/l (22-31); CHLORIDE 99 mEq/L (97-110); CREATININE 0.9 mg/dL (0.7-1.3); GLOMERULAR FILTRATION RATE > 60; GLUCOSE 142 mg/dL (70-100); POTASSIUM 4.4 mEq/L (3.5-5.2); SODIUM 136 mEq/L (134-144)
[2017-05-27] MEDS: D5W 1/2 NS 1,000 ML IV SCH (07:10)
--- NOTE | 2017-05-27 08:28 | SOAPPROG ---
SOAP Progress Note Assessment/Plan: Assessment/Plan: 66 Y M s/p L CEA, hx CVA, POD# 1. Doing well. Neuro exam stable. Dressing changed overnight for saturation. Wounds dry today with minimal swelling. BP stable. Cardiac diet. continue plavix and home meds. Transfer to PCU (cardiac hx). Likely home tomorrow. S: no complaints. a little pain. no neuro changes. O: alert, nad inc cdi, +ecchymosis. min swelling. tongue midline, pupils equal and round lungs clear rrr abd soft 05/27/17 08:26 Objective: Vital Signs Temp Pulse Resp BP Pulse Ox 36.4 C 77 15 109/62 95 05/27/17 08:00 05/27/17 08:00 05/27/17 08:00 05/27/17 08:00 05/27/17 08:00 Laboratory Results 05/27/17 04:45 05/27/17 04:45 05/26/17 05/27/17 05/28/17 05:59 05:59 05:59 Intake Total 1021 Output Total 625 Balance 396 ICD10 Worksheet Patient Problems: Problems Problem Status Onset Acute ischemic stroke Acute
[2017-05-27] MEDS: BUDESONIDE/FORMOTEROL 160/4.5 60 PUFFS/MDI IH SCH ×2 (09:42→20:25)
--- NOTE | 2017-05-27 09:50 | ASMTCMCOM ---
CM Note CM Note Notes: Patient is s/p L CEA with Dr Gavin and recovering well in the ICU. He lives independently with his and will likely discharge home with no needs. Case Management available should any arise. Date Signed: 05/27/2017 09:49 AM Electronically Signed By:Lizette Mobley RN
[2017-05-27] MEDS ORDERED: ACETAMINOPHEN 325 MG TAB ONE (10:11)
[2017-05-27] MEDS: ACETAMINOPHEN 325 MG TAB PO PRN ×2 (10:48→16:56)
[2017-05-27] MEDS: CALCIUM CARB W/VIT D 500 MG TAB PO SCH (20:44)
[2017-05-27] MEDS: ROSUVASTATIN CALCIUM 10 MG TAB PO SCH (20:44)
[2017-05-27] MEDS: CLOPIDOGREL BISULFATE 75 MG TAB PO SCH (20:44)
[2017-05-27] MEDS: LOSARTAN POTASSIUM 50 MG TAB PO SCH (20:45)
[2017-05-27] MEDS: ASPIRIN 81 MG CHEWABLE TAB PO SCH (20:45)
[2017-05-27] MEDS: SERTRALINE HCL 100 MG TAB PO SCH (20:45)
[2017-05-28] MEDS: ACETAMINOPHEN 325 MG TAB PO PRN ×2 (07:53→18:23)
[2017-05-28] MEDS: ENOXAPARIN 40 MG/0.4 ML SYR SC SCH (07:53)
[2017-05-28] MEDS: BUDESONIDE/FORMOTEROL 160/4.5 60 PUFFS/MDI IH SCH ×2 (09:12→20:56)
--- NOTE | 2017-05-28 09:32 | SOAPPROG ---
SOAP Progress Note Assessment/Plan: Assessment: 66yo male s/p L CEA, on oxygen. Hx of COPD but not on O2 normally No numbness/tingling of ext, no weakness, no difficulty ambulating on 1L PE Alert no signs of resp distress neck mild edema, ecchymosis Ext FROM without difficulty Plan: likely home Thursday, may need home O2 05/28/17 09:30 Objective: Vital Signs Temp Pulse Resp BP Pulse Ox 36.6 C 79 14 119/72 92 05/28/17 08:00 05/28/17 09:04 05/28/17 09:04 05/28/17 08:00 05/28/17 09:04 Laboratory Results 05/27/17 04:45 05/27/17 04:45 05/27/17 05/28/17 05/29/17 05:59 05:59 05:59 Intake Total 1021 2258 Output Total 625 Balance 396 2258 ICD10 Worksheet Patient Problems: Problems Problem Status Onset Acute ischemic stroke Acute
[2017-05-28] MEDS: CALCIUM CARB W/VIT D 500 MG TAB PO SCH (20:14)
[2017-05-28] MEDS: CLOPIDOGREL BISULFATE 75 MG TAB PO SCH (20:14)
[2017-05-28] MEDS: ROSUVASTATIN CALCIUM 10 MG TAB PO SCH (20:15)
[2017-05-28] MEDS: LOSARTAN POTASSIUM 50 MG TAB PO SCH (20:15)
[2017-05-28] MEDS: ASPIRIN 81 MG CHEWABLE TAB PO SCH (20:15)
[2017-05-28] MEDS: SERTRALINE HCL 100 MG TAB PO SCH (20:16)
--- NOTE | 2017-05-29 07:49 | SOAPPROG ---
SOSUJATA Progress Note Assessment/Plan: Assessment: WOUND OK/ AFEBRILE/ NEURO INTACT/ VS STABLE Plan:HOME TODAY 05/29/17 07:48 Objective: Vital Signs Temp Pulse Resp BP Pulse Ox 36.7 C 76 20 129/69 H 96 05/29/17 04:00 05/29/17 04:00 05/29/17 04:00 05/29/17 04:00 05/29/17 04:00 Laboratory Results 05/27/17 04:45 05/27/17 04:45 05/28/17 05/29/17 05/30/17 05:59 05:59 05:59 Intake Total 2258 200 Balance 2258 200 ICD10 Worksheet Patient Problems: Problems Problem Status Onset Acute ischemic stroke Acute
[2017-05-29] MEDS: BUDESONIDE/FORMOTEROL 160/4.5 60 PUFFS/MDI IH SCH (09:25)
[2017-05-29] MEDS: ENOXAPARIN 40 MG/0.4 ML SYR SC SCH (10:03)
[2017-05-29 11:31] VITALS: BP 138/79; PULSE 89; RESP 20; TEMP 97.6; O2SAT 92
--- NOTE | 2017-05-29 16:29 | ASDISCHSUM ---
Discharge Information Plan Status:Home with No Needs Medically Cleared to Leave:05/28/2017 Discharge Date:05/29/2017 03:29 PM CM D/C Disposition: ADT D/C Disposition:Home, Routine, Self-Care Projected Discharge Date:05/29/2017 12:00 AM Transportation at D/C: Discharge Delay Reason: Follow-Up Date:05/29/2017 12:00 AM Discharge Slot: Final Diagnosis: Placement Information Patient Contact Information Contact Name:PAOLO Relationship: Address:[address] [facility] [facility] City:[place] Alternate Phone: State/Zip Code:[place] [address] Email: Financial Information Financial Class: Primary Plan Desc:MEDICARE INPATIENT Primary Plan Number:[id number] Secondary Plan Desc:CORIE Secondary Plan Number:[id number] Assessment Information [facility] CM Progress Note CM Note CM Note Notes: Patient is s/p L CEA with Dr Gavin and recovering well in the ICU. He lives independently with his and will likely discharge home with no needs. Case Management available should any arise. Date Signed: 05/27/2017 09:49 AM Electronically Signed By:Lizette Mobley RN Intervention Information
== END 2017-05-29 15:29 | disposition home or self-care (01) | DRG 27 ==
LOC: F2W 09:38 → F2N 15:07 → F2W 05-27 13:59
PROVIDERS: ADMIT Surgery; ATTEND Surgery
PROC: 03CL3ZZ Extirpation of Matter from Left Internal Carotid Artery, Percutaneous Approach (ICD-10-PCS; principal; 2017-05-26 13:15)
DX: I65.22 Occlusion and stenosis of left carotid artery (principal); J44.9 Chronic obstructive pulmonary disease, unspecified; I25.10 Atherosclerotic heart disease of native coronary artery without angina pectoris; I10 Essential (primary) hypertension; E78.5 Hyperlipidemia, unspecified; Z86.73 Personal history of transient ischemic attack (TIA), and cerebral infarction without residual deficits; I25.2 Old myocardial infarction
CPT/HCPCS: C1768; J0690; J1650; J2250; J2704; J3010

== ENCOUNTER 2017-06-15 08:50 | Observation (INO) | payer OTHER ==
[2017-06-15] MEDS ORDERED: diphenhydrAMINE 25 MG CAP PO ONE (09:01)
[2017-06-15] MEDS ORDERED: ceFAZolin 2 GM/SWFI 2 GM/20 ML SYR IVP ONE (09:01)
[2017-06-15] MEDS ORDERED: DIAZEPAM 5 MG TAB PO ONE (09:01)
[2017-06-15] MEDS ORDERED: BACITRACIN IRRIGATION/NS 50,000 UNITS/1,000 ML BTL IRR ONE (09:01)
[2017-06-15] MEDS ORDERED: NS 1,000 ML IV ONE (09:01)
--- NOTE | 2017-06-15 09:18 | CPEKG ---
Heart Rate: 80 RR Interval: 750 P-R Interval: 172 QRSD Interval: 96 QT Interval: 376 QTC Interval: 434 P [place]: 66 QRS [place]: -7 T Wave [place]: 86 EKG Severity - ABNORMAL ECG - EKG Impression: SINUS RHYTHM EKG Impression: VENTRICULAR PREMATURE COMPLEX EKG Impression: PROBABLE LEFT ATRIAL ABNORMALITY EKG Impression: ANTERIOR INFARCT, AGE INDETERMINATE EKG Impression: COMPARED WITH 05/05/2017, PVC NOW PRESENT Electronically Signed By: Deonna Hamilton 15-Jun-2017 17:16:32
[2017-06-15 09:34] LABS: % IMMATURE GRANULYOCYTES 0.2 % (0.0-1.1); ABSOLUTE IMMATURE GRANULOCYTES 0.01 10^3/uL (0.00-0.10); ADD DIFF? NO; ADD MORPH? NO; ADD SCAN? NO; ATYPICAL LYMPHOCYTE FLAG 0 (0-99); FRAGMENT RBC FLAG 0 (0-99); HEMATOCRIT 46.2 % (40.0-51.0); HEMOGLOBIN 15.1 g/dL (13.7-17.5); LEFT SHIFT FLG 0 (0-99); LIPEMIA HEMOLYSIS FLAG 80 (0-99); MEAN CELL HEMOGLOBIN 30.6 pg (27.9-34.1); MEAN CELL HEMOGLOBIN CONCENTR. 32.7 g/dL (32.4-36.7); MEAN CELL VOLUME 93.5 fL (81.5-99.8); MEAN PLATELET VOLUME 8.6 fL (8.7-11.7); PLATELET CLUMPS FLAG 10 (0-99); PLATELET COUNT 332 10^3/uL (150-400); RED BLOOD CELL COUNT 4.94 10^6/uL (4.40-6.38); RED CELL DISTRIBUTION WIDTH 12.3 % (11.5-15.2)
[2017-06-15 09:42] LABS: INR 0.93 (0.83-1.16); PROTIME(PATIENT) 12.7 SEC (12.0-15.0)
[2017-06-15 09:50] LABS: ANION GAP 11 mEq/L (8-16); CALCIUM 9.7 mg/dL (8.5-10.4); CARBON DIOXIDE 26 mEq/l (22-31); CHLORIDE 102 mEq/L (97-110); CREATININE 1.2 mg/dL (0.7-1.3); GLOMERULAR FILTRATION RATE > 60; GLUCOSE 91 mg/dL (70-100); POTASSIUM 4.2 mEq/L (3.5-5.2); SODIUM 139 mEq/L (134-144)
[2017-06-15] MEDS ORDERED: fentaNYL 100 MCG/2 ML INJ ONE (11:25)
[2017-06-15] MEDS ORDERED: PROPOFOL 200 MG/20 ML VIAL ONE ×3 (11:25→12:26)
[2017-06-15] MEDS ORDERED: IOPAMIDOL (ISOVUE-300) 100 ML BTL ONE (11:32)
--- NOTE | 2017-06-15 11:33 | PDANEPAE ---
ANE Past Medical History - Cardiovascular History Hx Hypertension: Yes Hx Arrhythmias: No Hx Chest Pain: Yes Hx Coronary Artery / Peripheral Vascular Disease: Yes Hx CHF / Valvular Disease: No Hx Palpitations: No Cardiovascular History Comment: [place] 2015November - Pulmonary History Hx COPD: Yes Hx Asthma/Reactive Airway Disease: Yes Hx Recent Upper Respiratory Infection: No Hx Oxygen in Use at Home: No Hx Sleep Apnea: No Pulmonary History Comment: EMPHYSEMA - Neurologic History Hx Cerebrovascular Accident: Yes Hx Seizures: No Hx Dementia: No Neurologic History Comment: STROKE 05/05 - Endocrine History Hx Diabetes: No - Renal History Hx Renal Disorders: No - Liver History Hx Hepatic Disorders: No - Neurological & Psychiatric Hx Hx Neurological and Psychiatric Disorders: Yes Neurological / Psychiatric History Comment: Weakness on right, some receptive and expressive aphasia - Cancer History Hx Cancer: No - Congenital Disorder History Hx Congenital Disorders: No - GI History Hx Gastrointestinal Disorders: No - Other Health History Other Health History: easily bruised, skin is fragile - Chronic Pain History Chronic Pain: No - Surgical History Prior Surgeries: 2014 hernia repair. ANE Review of Systems Review of Systems: ANE Patient History - Allergies Allergies/Adverse Reactions: No Allergies [NKDA] Allergy (Verified 04/23/17 17:23) - Home Medications Home Medications: Aspirin [Aspirin 81mg (*)] 81 mg PO HS 04/27/17 [Last Taken 06/14/17] Budesonide/Formoterol 160/4.5 [Symbicort 160-4.5 Mcg Inh (*)] 2 puffs IH BID [Last Taken 06/14/17 21:00] Calcium Carbonate/Vitamin D3 [CALCIUM 600 + VIT D TABLET] 1 each PO HS 04/27/17 [Last Taken 06/14/17] Losartan Potassium [Cozaar 50 mg (*)] 100 mg PO HS 04/27/17 [Last Taken 06/14/17 ] Rosuvastatin Calcium [Crestor] 10 mg PO HS 04/27/17 [Last Taken 06/14/17] Clopidogrel Bisulfate [Plavix (*)] 75 mg PO HS 05/22/17 [Last Taken 06/14/17] Sertraline HCl [Zoloft 100mg (*)] 100 mg PO HS 05/22/17 [Last Taken 06/14/17] Albuterol [Proventil Inhaler HFA (*)] 1 - 2 puffs IH DAILY PRN 12/18/17 [Last Taken Unknown] Carvedilol [Coreg (*)] 3.125 mg PO BID 06/15/17 [Last Taken 06/14/17 21:00] - Anes Hx Anes Hx: no prior problems - Smoking Hx Smoking Status: Former smoker - Family Anes Hx Family Hx Anesthesia Complications: none ANE Labs/Vital Signs - Labs Result Diagrams: 06/15/17 09:20 06/15/17 09:20 - Vital Signs Height: 191 cm Weight: 83.9 kg ANE Physical Exam - Airway Mallampati Score: Class 2 Mouth exam: normal dental/mouth exam - Pulmonary Pulmonary: no respiratory distress, no rales or rhonchi, clear to auscultation - Cardiovascular Cardiovascular: regular rate and rhythym, no murmur, rub, or gallop, systolic murmur - ASA Status ASA Status: III ANE Anesthesia Plan Anesthesia Plan: MAC
[2017-06-15] MEDS ORDERED: BUPIVACAINE 0.5% 30 ML SDV ONE (11:38)
[2017-06-15] MEDS ORDERED: LIDOCAINE 1% 300 MG/30 ML SDV ONE (11:38)
[2017-06-15] MEDS ORDERED: LIDOCAINE 2% 5 ML SDV ONE (11:55)
[2017-06-15] MEDS ORDERED: HYDROCODONE/APAP 5/325 TAB PO PRN (12:53)
[2017-06-15] MEDS ORDERED: PROMETHAZINE HCL 25 MG/ML INJ IVP PRN (12:53)
[2017-06-15] MEDS ORDERED: NALOXONE HCL 0.4 MG/ML INJ IVP PRN (12:53)
[2017-06-15] MEDS ORDERED: fentaNYL 100 MCG/2 ML INJ IVP PRN (12:53)
[2017-06-15] MEDS ORDERED: ONDANSETRON 4 MG/2 ML VIAL IVP PRN (12:53)
--- NOTE | 2017-06-15 13:14 | POSTANESTH ---
Post Anesthetic Evaluation Cardiovascular Status: Normal, Stable, Similar to Pre-Op Cond Respiratory Status: Normal, Stable, Similar to Pre-op Cond. Level of Consciousness/Mental Status: Can Participate in Eval, Alert and Oriented Pain Control: Adequate, Prn Tx Ordered Nausea/Vomiting Control: Adequate, Prn Tx Ordered Complications Possibly Related to Anesthesia: None Noted
[2017-06-15] MEDS ORDERED: ALBUTEROL 60 PUFFS/8 GM MDI IH PRN (13:18)
--- NOTE | 2017-06-15 13:30 | CPEKG ---
Heart Rate: 69 RR Interval: 870 P-R Interval: 172 QRSD Interval: 96 QT Interval: 412 QTC Interval: 442 P Levels: 66 QRS Levels: -13 T Wave Levels: 91 EKG Severity - ABNORMAL ECG - EKG Impression: SINUS RHYTHM EKG Impression: ANTERIOR INFARCT, AGE INDETERMINATE EKG Impression: COMPARED WITH 06/15/2017 AT 9:16 A.M., PVC NOW ABSENT Electronically Signed By: Deonna Hamilton 15-Jun-2017 17:16:01
[2017-06-15] MEDS ORDERED: ALBUTEROL 200 PUFFS/18 GM MDI IH PRN (13:41)
[2017-06-15] MEDS: ACETAMINOPHEN 325 MG TAB PO PRN ×2 (14:11→20:29)
--- NOTE | 2017-06-15 17:20 | EPPROC ---
Electrophysiology Procedure Note: PROCEDURE PERFORMED: 1. Implantation of an V Implantable Cardioverter Defibrillator 2. Subclavian vein angiography 3. Fluoroscopy INDICATION: Ischemic cardiomyopathy MADIT II PROCEDURE NOTE: Patient presented to the cardiac catheterization laboratory in a fasting, post absorptive state. Dr. Vlad Myers administered sedation. The left infraclavicular area was prepped and draped in the usual sterile fashion. Lidocaine plus bupivacaine was used for local anesthesia. Left subclavian venography was performed by injection of iodinated contrast into the left antecubital vein. This was done to assure patency of the vein and also to assess for any anatomical aberrations. Using a combination of blunt and sharp dissection and electrocautery, the dissection was carried down to the prepectoral fascia. A pocket was made in this anatomical plane. All bleeding was controlled with electrocautery. The pocket was packed with gauze soaked in antibiotic solution. Fluoroscopy was utilized during the entire procedure for venous access and placement of the lead. Using a direct stick technique the left extrathoracic axillary vein was accessed with 1 stick using the modified Seldinger technique. Placement of the guidewire into the venous system was confirmed by low-pressure blood return and also by visualizing the guidewire advancing into the inferior vena cava. A purse string suture was applied around the guidewire. One #9 [place] sheath was advanced under fluoroscopic guidance over the guidewire. An active fixation ventricular ICD lead was advanced into the right ventricular apex and screwed in place. The peel away sheath was removed. Pacing thresholds, sensing parameters and lead impedances were measured. There was no diaphragmatic stimulation at maximum output. The lead was sutured to the prepectoral fascia with 3 nonabsorbable sutures. The gauze packing was removed from the ICD pocket. The pocket was again inspected for any bleeding. The lead was attached to the ICD securely. The ICD was inserted into the pocket and secured in place with a nonabsorbable suture. Fluoroscopy was performed in CARDONA and BARBARA planes to verify right sided placement of the lead. Also fluoroscopy of the ICD pocket was performed. Defibrillation testing was performed. The ICD pocket was closed in 2 layers with vicryl and josue. Appropriate dressing was applied. The patient left the cardiac catheterization laboratory in stable condition. Serial Numbers: 1. Device : Biotronik Intica [id number] SN [id number] Pro MRI 2. Ventricular Lead : [id number] Plexa Pro MRI DF1 SN [id number] (VDD lead) Stimulation Thresholds & Impedance Measurements: 1. Ventricular Lead R wave 15.1 mV P wave 18 mV 0.4 V 0.4 ms 752 ohm Defibrillation testing: Not done Pacing Parameters: 1. Pacing mode VVI 2. Lower rate 40 ppm Tachycardia therapy parameters: VT zone: Detection: 176 bpm First therapy : ATP 3 sequences Second therapy: 40 Joule x 8 VF zone : Detection: 210 bpm First therapy: ATP x 1 Subsequent therapies: 40 Joule x 8 Patient Problems: Problems Problem Status Onset Ischemic cardiomyopathy Acute Cardiomyopathy Acute Acute ischemic stroke Acute
[2017-06-15] MEDS: CARVEDILOL 3.125 MG TAB PO SCH (19:47)
[2017-06-15] MEDS: BUDESONIDE/FORMOTEROL 160/4.5 60 PUFFS/MDI IH SCH (19:49)
[2017-06-15] MEDS ORDERED: ROSUVASTATIN CALCIUM 10 MG TAB PO SCH (21:00)
[2017-06-15] MEDS ORDERED: ASPIRIN 81 MG CHEWABLE TAB PO SCH (21:00)
[2017-06-15] MEDS ORDERED: LOSARTAN POTASSIUM 50 MG TAB PO SCH (21:00)
[2017-06-15] MEDS ORDERED: SERTRALINE HCL 100 MG TAB PO SCH (21:00)
[2017-06-15] MEDS ORDERED: CLOPIDOGREL BISULFATE 75 MG TAB PO SCH (21:00)
[2017-06-15] MEDS ORDERED: CALCIUM CARB W/VIT D 500 MG TAB PO SCH (21:00)
[2017-06-16 04:21] LABS: % IMMATURE GRANULYOCYTES 0.4 % (0.0-1.1); ABSOLUTE IMMATURE GRANULOCYTES 0.02 10^3/uL (0.00-0.10); ADD DIFF? NO; ADD MORPH? NO; ADD SCAN? NO; ATYPICAL LYMPHOCYTE FLAG 0 (0-99); FRAGMENT RBC FLAG 0 (0-99); HEMATOCRIT 39.5 % (40.0-51.0); HEMOGLOBIN 12.9 g/dL (13.7-17.5); LEFT SHIFT FLG 0 (0-99); LIPEMIA HEMOLYSIS FLAG 80 (0-99); MEAN CELL HEMOGLOBIN 30.6 pg (27.9-34.1); MEAN CELL HEMOGLOBIN CONCENTR. 32.7 g/dL (32.4-36.7); MEAN CELL VOLUME 93.6 fL (81.5-99.8); MEAN PLATELET VOLUME 9.1 fL (8.7-11.7); PLATELET CLUMPS FLAG 10 (0-99); PLATELET COUNT 264 10^3/uL (150-400); RED BLOOD CELL COUNT 4.22 10^6/uL (4.40-6.38); RED CELL DISTRIBUTION WIDTH 12.4 % (11.5-15.2)
[2017-06-16 04:48] LABS: ANION GAP 12 mEq/L (8-16); CARBON DIOXIDE 25 mEq/l (22-31); CHLORIDE 102 mEq/L (97-110); CREATININE 1.1 mg/dL (0.7-1.3); GLOMERULAR FILTRATION RATE > 60; GLUCOSE 82 mg/dL (70-100); POTASSIUM 4.5 mEq/L (3.5-5.2); SODIUM 139 mEq/L (134-144)
[2017-06-16] MEDS: ACETAMINOPHEN 325 MG TAB PO PRN (07:50)
[2017-06-16 08:02] VITALS: BP 127/75; PULSE 73; RESP 15; TEMP 98; O2SAT 96
[2017-06-16] MEDS: BUDESONIDE/FORMOTEROL 160/4.5 60 PUFFS/MDI IH SCH (08:36)
[2017-06-16] MEDS: CARVEDILOL 3.125 MG TAB PO SCH (08:42)
--- NOTE | 2017-06-16 08:42 | CPEKG ---
Heart Rate: 74 RR Interval: 811 P-R Interval: 160 QRSD Interval: 90 QT Interval: 396 QTC Interval: 440 P [place]: 77 QRS [place]: -47 T Wave [place]: 92 EKG Severity - ABNORMAL ECG - EKG Impression: SINUS RHYTHM EKG Impression: PROBABLE LEFT ATRIAL ABNORMALITY EKG Impression: LEFT ANTERIOR FASCICULAR BLOCK EKG Impression: ANTERIOR INFARCT, AGE INDETERMINATE EKG Impression: COMPARED WITH 06/15/2017 AT 1:27 P.M., AXIS HAS SHIFTED MORE LEFTWARD Electronically Signed By: Deonna Hamilton 16-Jun-2017 18:43:05
--- NOTE | 2017-06-16 09:12 | ASMTCMCOM ---
CM Note CM Note Notes: 06/16/2017 Case Management Note There are no case management d/c needs identified d/t pt age, marital status and activity levels prior to admission. Case Management d/c poc: Home independent when medically stable with follow up as directed. Case Management available if needs change. Date Signed: 06/16/2017 09:12 AM Electronically Signed By:Dinora Duarte RN
--- NOTE | 2017-06-16 12:36 | ASDISCHSUM ---
Discharge Information Plan Status:Home with No Needs Medically Cleared to Leave:06/15/2017 Discharge Date:06/16/2017 11:02 AM CM D/C Disposition:Home, Routine, Self-Care ADT D/C Disposition:Home, Routine, Self-Care Projected Discharge Date:06/16/2017 11:02 AM Transportation at D/C:Family Discharge Delay Reason: Follow-Up Date:06/16/2017 11:02 AM Discharge Slot: Final Diagnosis: Placement Information Patient Contact Information Contact Name:PAOLO Relationship: Address:[id number] [place] [address] City:[place] Alternate Phone: State/Zip Code:[place] [address] Email: Financial Information Financial Class: Primary Plan Desc:MEDICARE OUTPATIENT Primary Plan Number:[id number] Secondary Plan Desc:CORIE Secondary Plan Number:[id number] Assessment Information [facility] CM Progress Note CM Note CM Note Notes: 06/16/2017 Case Management Note There are no case management d/c needs identified d/t pt age, marital status and activity levels prior to admission. Case Management d/c poc: Home independent when medically stable with follow up as directed. Case Management available if needs change. Date Signed: 06/16/2017 09:12 AM Electronically Signed By:Dinora Duarte RN Case Management Discharge Plan Note Case Management Discharge Discharge Order Complete? Answers: Yes Discharge Comments Notes: Pt d/c independent Date Signed: 06/16/2017 12:34 PM Electronically Signed By:Dinora Duarte RN LACE LACE Length of stay for Answers: Less than 1 day current admission Acuity / Level of Care Answers: No. Emergency dept visits in Answers: 0 last 6 months Date Signed: 06/16/2017 12:36 PM Electronically Signed By:Dinora Duarte RN Intervention Information Intervention Type:*CHRISTINE-Signed Date of Service:06/16/2017 10:07 AM Patient Type:Observation Staff Member:Danyelle Vazquez Hours: Discipline: Severity: Comment:
--- NOTE | 2017-06-16 21:28 | GDS ---
[f rep st] DISCHARGE SUMMARY DISCHARGE DIAGNOSES: 1. Ischemic cardiomyopathy. 2. Status post implantable cardioverter defibrillator implant. 3. Coronary artery disease. 4. Hypertension. 5. History of stroke. 6. Recent carotid endarterectomy. BRIEF HISTORY: This is a 66-year-old man with a history of ischemic cardiomyopathy, with a chronically occluded proximal LAD and ejection fraction of 30%. He is status post stroke with expressive aphasia with carotid artery disease, status post carotid artery endarterectomy last month. He qualifies for ICD implant based on MADIT II criteria. HOSPITAL COURSE: Dr. Mosley implanted a TristroniWeG[employer] single-chamber ICD without complications. No DFTs were done. Device is programmed mode VDD at a lower rate of 30 beats per minute. VT detection is 176 beats per minute. VF detection is 210 beats per minute. P waves measured at 24.3 mV. R waves are measured at 23.4 mV. Ventricular capture threshold is 0.3 V at 0.4 milliseconds. RV lead impedance is 766 ohms. The patient has done well overnight with some mild discomfort that was relieved with Tylenol. The pacemaker site is with Opsite and gauze that are dry and intact. No bleeding. He denies any chest pain, pressure, tightness, or shortness of breath. TESTING DONE: Chest x-ray demonstrates no pneumothorax and underlying COPD. LAB WORK: WBC is 5.26, hemoglobin 12.9, hematocrit 39.5, platelets 264. Sodium 139, potassium 4.5, chloride 102, bicarb 25, BUN 13, creatinine 1.1, glucose 82. PHYSICAL EXAM: VITAL SIGNS: Blood pressure is 135/77. Pulse is 69, respirations 16, temperature 36.6. O2 saturation on room air is 90%. GENERAL: He is alert and oriented, sitting up in bed, in no acute distress. CARDIAC: Regular rate and rhythm without murmur, rub, or gallop. LUNGS: Clear to auscultation. Pacemaker site is with gauze and Opsite dressing that is dry and intact. No blood visible on gauze. There is mild ecchymosis on the upper and lateral portion of the Opsite. There is mild swelling of the pacemaker pocket. DISCHARGE INSTRUCTIONS: Post-pacemaker implant activity restrictions were reviewed verbally with patient and his , as well as he was given written instructions. DISCHARGE MEDICATIONS: Please see discharge medication reconciliation. He will continue all of his home medications. FOLLOWUP: He has a followup scheduled for a pacemaker check and a wound check at [facility] on June 24 at 11:30. He has a followup with Dr. Mosley on July 15 at 1:45. /[id number]/MODL MTDD
== END 2017-06-16 11:02 | disposition home or self-care (01) ==
LOC: FCATH 08:50 → F2W 13:13
PROVIDERS: ADMIT Internal Medicine Cardiovascular Disease; ATTEND Internal Medicine Cardiovascular Disease
PROC: 0JH608Z Insertion of Defibrillator Generator into Chest Subcutaneous Tissue and Fascia, Open Approach (ICD-10-PCS; principal; 2017-06-15)
PROC: 02HK3KZ Insertion of Defibrillator Lead into Right Ventricle, Percutaneous Approach (ICD-10-PCS; principal; 2017-06-15)
DX: I25.5 Ischemic cardiomyopathy (principal); I25.10 Atherosclerotic heart disease of native coronary artery without angina pectoris; I10 Essential (primary) hypertension; Z86.73 Personal history of transient ischemic attack (TIA), and cerebral infarction without residual deficits
CPT/HCPCS: 33249; 71010; 71020; 93005; C1722; C1777; J0690; J2704; J3010; Q9967

== ENCOUNTER 2017-07-20 07:57 | Inpatient (IN) | payer OTHER ==
[~2017-07-20 07:57] MED LIST: ceFAZolin 2 GM/SWFI 2 GM/20 ML SYR IVP ONE
[2017-07-20] MEDS ORDERED: BUPIVACAINE 0.5% 30 ML SDV ONE (09:14)
[2017-07-20] MEDS ORDERED: THROMBIN (BOVINE) 20,000 UNIT SPRAY TP ONE (09:14)
[2017-07-20] MEDS ORDERED: BACITRACIN ZINC 14.2 GM OINTTUBE TP ONE (09:15)
[2017-07-20] MEDS ORDERED: PAPAVERINE HCL 60 MG/2 ML SDV ONE (09:16)
[2017-07-20] MEDS ORDERED: PROTAMINE SULFATE 50 MG/5 ML VIAL IVP ONE (09:16)
--- NOTE | 2017-07-20 09:47 | PDANEPAE ---
ANE History of Present Illness 66 yo male s/p L-sided CVA with subsequent R CEA for significant stenosis now for L CEA. ANE Past Medical History - Cardiovascular History Hx Hypertension: Yes Hx Arrhythmias: Yes Hx Chest Pain: Yes Hx Coronary Artery / Peripheral Vascular Disease: Yes Hx CHF / Valvular Disease: No Hx Palpitations: No Cardiovascular History Comment: mi 11/2015. cardiac cath 05/04/17. Left CEA with Romaine 05/26/17. icd placed 06/15/17. AAA. cad. hyperlipidemia. non sustained VT a few days ago - Pulmonary History Hx COPD: Yes Hx Asthma/Reactive Airway Disease: Yes Hx Recent Upper Respiratory Infection: No Hx Oxygen in Use at Home: No Hx Sleep Apnea: No Sleep Apnea Screening Result - Last Documented: Positive Pulmonary History Comment: EMPHYSEMA. instructed pt's to bring inhalers in. [place] triggers - Neurologic History Hx Cerebrovascular Accident: Yes Hx Seizures: No Hx Dementia: No Neurologic History Comment: CVA 05/05/17-Weakness on right, some receptive and expressive aphasia - Endocrine History Hx Diabetes: No Hypothyroid: No Obesity: no - Renal History Hx Renal Disorders: No - Liver History Hx Hepatic Disorders: No - Neurological & Psychiatric Hx Hx Neurological and Psychiatric Disorders: No Neurological / Psychiatric History Comment: Weakness on right, some receptive and expressive aphasia - Cancer History Hx Cancer: No - Congenital Disorder History Hx Congenital Disorders: No - GI History Hx Gastrointestinal Disorders: No - Other Health History Other Health History: easily bruised, skin is fragile. wears glasses - Chronic Pain History Chronic Pain: No - Surgical History Prior Surgeries: 06/15/17 ICD placed with Melany. 05/26/17 Left CEA with Romaine. 05/04/17 cardiac cath. 2014 hernia repair ANE Review of Systems Review of Systems: - Exercise capacity METS (RN): 3 METS - Systems Constitutional: Reports: no symptoms Cardiac: Reports: no symptoms Respiratory: Reports: no symptoms - Pacemaker Pacemaker Type: Permanent Pacer/Defib Pacemaker Back Seam Stitcher: [employer] Pacemaker Model: Intica 7 R-T DX PRO MRI Pacemaker Mode: VDD Pacemaker Set Rate: 30 Date Pacemaker Last Checked: 07/16/17 ANE Patient History - Allergies Allergies/Adverse Reactions: No Allergies [NKDA] Allergy (Verified 07/17/17 14:59) - Home Medications Home Medications: Aspirin [Aspirin 81mg (*)] 81 mg PO HS 04/27/17 [Last Taken 07/19/17 21:00] Budesonide/Formoterol 160/4.5 [Symbicort 160-4.5 Mcg Inh (*)] 2 puffs IH BID [Last Taken 07/20/17 05:00] Calcium Carbonate/Vitamin D3 [CALCIUM 600 + VIT D TABLET] 1 each PO HS 04/27/17 [Last Taken 07/19/17 21:00] Losartan Potassium [Cozaar 50 mg (*)] 100 mg PO HS 04/27/17 [Last Taken 21:00] Rosuvastatin Calcium [Crestor] 10 mg PO HS 04/27/17 [Last Taken 07/19/17 21:00] Clopidogrel Bisulfate [Plavix (*)] 75 mg PO HS 05/22/17 [Last Taken 07/19/17 21: 00] Sertraline HCl [Zoloft 100mg (*)] 100 mg PO HS 05/22/17 [Last Taken 07/19/17 21: 00] Albuterol [Proventil Inhaler HFA (*)] 1 - 2 puffs IH DAILY PRN 06/15/17 [Last Taken 07/19/17 21:00] Carvedilol [Coreg (*)] 3.125 mg PO BID 06/15/17 [Last Taken 07/20/17 05:00] - NPO status NPO Since - Liquids (Date): 07/19/17 NPO Since - Liquids (Time): 20:30 NPO Since - Solids (Date): 07/19/17 NPO Since - Solids (Time): 20:30 - Anes Hx Anes Hx: no prior problems - Smoking Hx Smoking Status: Former smoker Marijuana use: No - Family Anes Hx Family Anes Hx: neg - N/A Family Hx Anesthesia Complications: none ANE Labs/Vital Signs - Vital Signs Blood Pressure: 145/78 Heart Rate: 88 Respiratory Rate: 12 O2 Sat (%): 97 Height: 191 cm Weight: 83.9 kg ANE Physical Exam - Airway Neck exam: FROM Mallampati Score: Class 2 Mouth exam: normal dental/mouth exam - Pulmonary Pulmonary: no respiratory distress - Cardiovascular Cardiovascular: regular rate and rhythym - ASA Status ASA Status: III ANE Anesthesia Plan Anesthesia Plan: general endotracheal anesthesia Lines/Monitors: arterial line
[2017-07-20] MEDS ORDERED: fentaNYL 100 MCG/2 ML INJ ONE (09:53)
[2017-07-20] MEDS ORDERED: PROPOFOL/EMULSION 500 MG/50 ML BOTTLE IV ONE ×2 (09:53→11:10)
[2017-07-20] MEDS ORDERED: DEXAMETHASONE 4 MG/ML VIAL ONE (09:53)
[2017-07-20] MEDS ORDERED: HEPARIN 10,000 UNIT/10 ML MDV (1,000 UNIT/ML) ONE (09:53)
[2017-07-20] MEDS ORDERED: LIDOCAINE 2% 5 ML SDV ONE (09:53)
[2017-07-20] MEDS ORDERED: ROCURONIUM 50 MG/5 ML VIAL ONE (09:53)
[2017-07-20] MEDS ORDERED: PHENYLEPHRINE HCL 100 MCG/ML SYR ONE ×2 (10:19→10:50)
[2017-07-20] MEDS ORDERED: ONDANSETRON 4 MG/2 ML VIAL ONE (11:50)
[2017-07-20] MEDS ORDERED: NALOXONE HCL 0.4 MG/ML INJ IVP PRN (12:05)
[2017-07-20] MEDS ORDERED: HYDROCODONE/APAP 5/325 TAB PO PRN (12:05)
[2017-07-20] MEDS ORDERED: ACETAMINOPHEN 500 MG TAB PO PRN (12:05)
[2017-07-20] MEDS ORDERED: ENALAPRILAT DIHYDRATE 1.25 MG/ML VIAL IVP PRN ×2 (12:05→12:21)
[2017-07-20] MEDS ORDERED: fentaNYL 100 MCG/2 ML INJ IVP PRN (12:05)
[2017-07-20] MEDS ORDERED: LABETALOL HCL 5 MG/ML 20 ML MDV IVP PRN (12:05)
[2017-07-20] MEDS ORDERED: PROMETHAZINE HCL 25 MG/ML INJ IVP PRN (12:05)
[2017-07-20] MEDS ORDERED: DIAZEPAM 10 MG/2 ML SYR IVP PRN (12:05)
[2017-07-20] MEDS ORDERED: SUGAMMADEX SODIUM 200 MG/2 ML VIAL IVP ONE (12:09)
[2017-07-20] MEDS ORDERED: HYDROmorphONE/DILAUDID 1 MG/ML INJ IVP PRN (12:17)
[2017-07-20] MEDS ORDERED: ONDANSETRON 4 MG/2 ML VIAL IVP PRN (12:17)
--- NOTE | 2017-07-20 12:25 | POSTOPPROG ---
Post Op Note Date of Operation: 07/20/17 Surgeon: Gunner Gavin Student Affairs Dean: Elodia Rivas Anesthesiologist: Adrianna Wheatley Anesthesia: GET(General Endotracheal) Pre-op Diagnosis: critical R carotid stenosis. (hx of stroke and L CEA) Post-op Diagnosis: same. Procedure: R CEA c EEG monitoring with shunt and patch closure Findings: granular calcified plaque, no EEG changes. fair back flow Inf/Abcess present in the surg proc area at time of surgery?: No EBL: 50-100 Complications: none Specimen(s): plaque and cervical node to pathology
--- NOTE | 2017-07-20 12:40 | POSTANESTH ---
Post Anesthetic Evaluation Cardiovascular Status: Normal, Stable Respiratory Status: Normal, Stable Level of Consciousness/Mental Status: Can Participate in Eval, Mildly Sleepy, Arousable Pain Control: Adequate, Prn Tx Ordered Nausea/Vomiting Control: Adequate, Prn Tx Ordered Complications Possibly Related to Anesthesia: None Noted (Moves all 4 extremities to command. Says "sasha.")
[2017-07-20] MEDS: OXYCODONE/APAP 5/325 TAB PO PRN ×2 (14:10→20:53)
[2017-07-20] MEDS: NS W/ 20 KCl/L 1,000 ML IV SCH ×2 (14:11→21:49)
[2017-07-20] MEDS: ceFAZolin 2 GM/SWFI 2 GM/20 ML SYR IVP SCH (18:05)
[2017-07-20] MEDS ORDERED: ALBUMIN 5% 500 ML IV ONE (20:00)
[2017-07-21] MEDS: ceFAZolin 2 GM/SWFI 2 GM/20 ML SYR IVP SCH (02:23)
[2017-07-21] MEDS: OXYCODONE/APAP 5/325 TAB PO PRN ×3 (04:24→21:16)
[2017-07-21] MEDS: NS W/ 20 KCl/L 1,000 ML IV SCH (06:29)
[2017-07-21] MEDS ORDERED: ACETAMINOPHEN 325 MG TAB PO PRN (08:03)
[2017-07-21] MEDS ORDERED: ALBUTEROL 60 PUFFS/8 GM MDI IH PRN (08:03)
[2017-07-21] MEDS: BUDESONIDE/FORMOTEROL 160/4.5 60 PUFFS/MDI IH SCH ×2 (08:48→21:05)
[2017-07-21] MEDS: CARVEDILOL 3.125 MG TAB PO SCH ×2 (08:48→20:04)
[2017-07-21] MEDS ORDERED: BUDESONIDE/FORMOTEROL 160/4.5 60 PUFFS/MDI IH SCH (09:00)
--- NOTE | 2017-07-21 09:11 | SOAPPROG ---
SOAP Progress Note Assessment/Plan: Assessment: DOING WELL/ NEURO INTACT/ WOUND OK/ AFEBRILE TO MED-SURG Plan:HOME IN AM/ CONTINUE PLAVIX 07/21/17 09:09 Objective: Vital Signs Temp Pulse Resp BP Pulse Ox 36.8 C 71 16 94/52 L 93 07/21/17 08:00 07/21/17 08:48 07/21/17 08:00 07/21/17 08:48 07/21/17 08:00 Laboratory Results 07/21/17 05:20 07/21/17 05:20 07/20/17 07/21/17 07/22/17 05:59 05:59 05:59 Intake Total 4264 Output Total 730 Balance 3534 ICD10 Worksheet Patient Problems: Problems Problem Status Onset Acute ischemic stroke Acute Cardiomyopathy Acute Ischemic cardiomyopathy Acute
--- NOTE | 2017-07-21 17:33 | ASMTCMCOM ---
CM Note CM Note Notes: 66 year old male admitted for R carotid endarterectomy. At [facility] 2 weeks ago after a CVA, due to Cardiomyopathy, Carotid stenosis and had a L carotid endarterectomy. No discharge needs anticipated at this time. Date Signed: 07/21/2017 05:33 PM Electronically Signed By:Taisha Austin LCSW
[2017-07-21] MEDS: SENNOSIDES 1 TAB PO SCH (20:02)
[2017-07-21] MEDS ORDERED: CLOPIDOGREL BISULFATE 75 MG TAB PO SCH (21:00)
[2017-07-21] MEDS ORDERED: ASPIRIN 81 MG CHEWABLE TAB PO SCH (21:00)
[2017-07-21] MEDS ORDERED: LOSARTAN POTASSIUM 50 MG TAB PO SCH (21:00)
[2017-07-21] MEDS ORDERED: ROSUVASTATIN CALCIUM 10 MG TAB PO SCH (21:00)
[2017-07-21] MEDS ORDERED: SERTRALINE HCL 100 MG TAB PO SCH (21:00)
[2017-07-22 07:27] VITALS: BP 131/70; TEMP 98.5
[2017-07-22] MEDS: BUDESONIDE/FORMOTEROL 160/4.5 60 PUFFS/MDI IH SCH (08:43)
[2017-07-22 08:45] VITALS: PULSE 62; RESP 14; O2SAT 92
[2017-07-22] MEDS: CARVEDILOL 3.125 MG TAB PO SCH (08:56)
[2017-07-22] MEDS: SENNOSIDES 1 TAB PO SCH (08:56)
[2017-07-22] MEDS ORDERED: ENOXAPARIN 40 MG/0.4 ML SYR SC SCH (09:00)
--- NOTE | 2017-07-22 09:39 | PDHOMEO2F ---
Home Oxygen Face to Face Home Orders: I certify that a physician or a nurse practitioner or physician's embroidery assistant has had a hqht-we-aecx encounter with this patient on the date of this order due to the diagnosis listed, which relates to the primary reason the patient requires home oxygen. Alternative treatments have been tried, or considered, and deemed ineffective. It is anticipated that supplemental oxygen will result in improvement with treatment. Home oxygen qualifying diagnosis: postoperative hypoxia Home oxygen secondary diagnosis: atelectasis SpO2 on room air (%): 77-92% Frequency of home oxygen needed: with activity Home oxygen liters per minute: 2 Home oxygen delivery device: nasal cannula Concentrator: Yes E-tanks for mobility and back up: Yes If ordering portable O2, is the patient mobile in the home?: Yes I certify that, based on these findings, the home oxygen is medically necessary for this patient for the following length of time. Length of time home oxygen needed: 1 month Home Oxygen Comment: will need f/u with PCP
--- NOTE | 2017-07-22 14:53 | GOP ---
[f rep st] OPERATIVE REPORT DATE OF OPERATION: 07/20/2017 SURGEON: Gunner Gavin MD SOCIAL STAFF WORKER: Elodia Whitaker PA-C. ANESTHESIOLOGIST: Adrianna Haddad MD. PREOPERATIVE DIAGNOSIS: 1. Critical right carotid stenosis. 2. History of cerebrovascular accident. POSTOPERATIVE DIAGNOSIS: 1. Critical right carotid stenosis. 2. History of cerebrovascular accident. PROCEDURE PERFORMED: Right carotid endarterectomy with EEG monitoring with a shunt and Dacron patch. FINDINGS: The patient was found to have a calcified tight stenosis at the origin of the right medical assistant internal medicine al carotid artery. He had a good feathered end. He had no EEG changes during the procedure. DESCRIPTION OF PROCEDURE: The patient was taken operating room where he received satisfactory genera l endotracheal anesthesia by Dr. Haddad. He was systemically heparinized prior to the induction of anesthesia. He was placed in the supine position, prepped and draped in the usual sterile fashion. Incision was made along the anterior border of the sternocleidomastoid muscle and carried down throug h the subcu and platysma and then the cervical fascia. The common facial vein was dissected free, mul tiply ligated and divided, exposing the carotid arterial tree which was then dissected free. The com mon carotid, internal carotid, external carotid were all encircled with vessel loops with care to jad id injury to the hypoglossal nerve. After adequate exposure was achieved, additional heparin was give n and after adequate circulation time, the vessels were occluded. Arteriotomy was made in the common carotid artery and extended up through the tight plaque at the origin of the internal carotid. Good backflow was present from the internal carotid artery. An expeditious endarterectomy was then done with a good feathered end being achieved. The shunt was then placed and the wound was further cleane d of debris. The distal plaque end was tacked down with a 7-0 Prolene suture and then the arteriotom y was closed with a Dacron patch, sutured in place with a running Hemashield 7 suture. When the sutu re line was near complete, the shunt was removed. All vessels were flushed. The suture line was com pleted. Flow was first established through the external carotid artery and then through the internal carotid. There were no difficulties or EEG changes or other complications. Suture line appeared to be hemostatic. The wound was sprayed with some topical thrombin after the heparin was reversed with protamine. The wound was closed in layers using 3-0 Vicryl for the superficial fascia, 3-0 Vicryl f or the platysma and subcutaneous tissue, a 4-0 Monocryl subcuticular stitch for the skin. The superf icial layers were infiltrated with 0.5% Marcaine. There were no complications. Blood was less than 50 cc. /[id number]/MODL
--- NOTE | 2017-07-22 15:29 | ASDISCHSUM ---
Discharge Information Plan Status:Home with No Needs Medically Cleared to Leave:07/21/2017 Discharge Date:07/22/2017 11:25 AM CM D/C Disposition:Home, Routine, Self-Care ADT D/C Disposition:Home, Routine, Self-Care Projected Discharge Date:07/22/2017 12:00 AM Transportation at D/C:Family Discharge Delay Reason: Follow-Up Date:07/22/2017 12:00 AM Discharge Slot: Final Diagnosis:R carotid endarterectomy Placement Information Patient Contact Information Contact Name:PAOLO Relationship: Address:[id number] [place] [address] City:[place] Alternate Phone: State/Zip Code:[place] [address] Email: Financial Information Financial Class: Primary Plan Desc:MEDICARE INPATIENT Primary Plan Number:[id number] Secondary Plan Desc:CORIE Secondary Plan Number:[id number] Assessment Information [facility] CM Progress Note CM Note CM Note Notes: 66 year old male admitted for R carotid endarterectomy. At [facility] 2 weeks ago after a CVA, due to Cardiomyopathy, Carotid stenosis and had a L carotid endarterectomy. No discharge needs anticipated at this time. Date Signed: 07/21/2017 05:33 PM Electronically Signed By:Taisha Austin LCSW LACE EVIE Length of stay for Answers: 2 days current admission Acuity / Level of Answers: Yes Care: Did the patient have an inpatient admission? # of Emergency department Answers: 0 visits in the last 6 months Score: 5 Date Signed: 07/22/2017 03:28 PM Electronically Signed By:Dinora Duarte, RN Intervention Information Intervention Type:*IM-Signed Date of Service:07/21/2017 04:38 PM Patient Type:Inpatient Staff Member:Danyelle Vazquez Hours: Discipline: Severity: Comment:
== END 2017-07-22 11:25 | disposition home or self-care (01) | DRG 38 ==
LOC: F3N 07:57 → F2N 13:52 → F2W 07-21 15:38
PROVIDERS: ADMIT Surgery; ATTEND Surgery
PROC: 03CH0ZZ Extirpation of Matter from Right Common Carotid Artery, Open Approach (ICD-10-PCS; principal; 2017-07-20 10:30)
PROC: 03UH0JZ Supplement Right Common Carotid Artery with Synthetic Substitute, Open Approach (ICD-10-PCS; principal; 2017-07-20 10:30)
DX: I65.21 Occlusion and stenosis of right carotid artery (principal); I69.351 Hemiplegia and hemiparesis following cerebral infarction affecting right dominant side; I69.320 Aphasia following cerebral infarction; I25.5 Ischemic cardiomyopathy; I25.10 Atherosclerotic heart disease of native coronary artery without angina pectoris; I10 Essential (primary) hypertension; E78.5 Hyperlipidemia, unspecified; J44.9 Chronic obstructive pulmonary disease, unspecified; I25.2 Old myocardial infarction; I71.4 Abdominal aortic aneurysm, without rupture; G47.33 Obstructive sleep apnea (adult) (pediatric); Z79.51 Long term (current) use of inhaled steroids; Z79.82 Long term (current) use of aspirin; Z95.810 Presence of automatic (implantable) cardiac defibrillator
CPT/HCPCS: C1768; J0690; J1100; J1644; J1650; J2370; J2405; J2440; J2704; J2720; J3010; P9041